=== PATIENT | female | born 1965 | race Caucasian/White ===

== ENCOUNTER 2021-09-06 23:09 | Inpatient (IN) | payer BC, OTHER, SELFPAY ==
--- NOTE | ~2021-09-06 | XR_ITS ---
EXAMINATION: XR abdomen obstructive series DATE: 09/13/2021 07:47 INDICATION: Nausea and bloating post appendectomy TECHNIQUE: Frontal supine and upright views of the abdomen were obtained. COMPARISON: CT dated 09/09/2021 FINDINGS: Surgical drain in the right lower quadrant. Multiple gas-filled but not frankly dilated loops of smal l bowel in the abdomen most likely postoperative ileus. No free intraperitoneal gas. Lung bases are c lear. Heart size is normal. IMPRESSION: 1. Several gas-filled but not frankly dilated loops of small bowel in the abdomen and favor postoper ative ileus over obstruction. Reviewed, dictated and finalized at location A. IMPRESSION: 1. Several gas-filled but not frankly dilated loops of small bowel in the abdo men and favor postoperative ileus over obstruction.
--- NOTE | ~2021-09-06 | CT_ITS ---
EXAMINATION: CT abdomen pelvis w con DATE: 09/09/2021 09:29 INDICATION: Appendicitis TECHNIQUE: Computed tomography (CT) of the abdomen and pelvis was performed with 100 mL Omnipaque-300 intravenous contrast. Automated exposure control and iterative reconstruction technique were employe d. The dose-length product was 1509.90 mGy-cm. COMPARISON: None FINDINGS: Lung bases are clear. Heart size is normal. No pericardial or pleural effusion. Liver, gallbladder, s pleen, pancreas, bilateral adrenal glands and kidneys are normal. The appendix is dilated to 12 mm di stal to a chronic obstructing 5 mm stone in the proximal appendix. There appears be a ruptured in the wall of the retrocecal appendix with approximately 3-4 cm diameter gas and fluid collection situated in the retroperitoneum between the appendix and the tip the cecum which is without organized enhanci ng wall. There is prominent surrounding retroperitoneal inflammatory stranding which extends cephalad into the inferior aspect of the right posterior pararenal space. There is also subtle stranding in t he immediately overlying deep subcutaneous fat of the right lower quadrant anterior abdominal wall. T here is no free intraperitoneal gas or fluid. Bladder, uterus and bilateral adnexa are unremarkable. No pathologically enlarged abdominal or pelvic lymphadenopathy. Bones are unremarkable. IMPRESSION: 1. Ruptured appendicitis with 3-4 cm nonorganized appearing gas and fluid collection between the appe ndix and the tip the cecum, likely retroperitoneal. Reviewed, dictated and finalized at location B. IMPRESSION: 1. Ruptured appendicitis with 3-4 cm nonorganized appearing gas and fluid colle ction between the appendix and the tip the cecum, likely retroperitoneal.
--- NOTE | ~2021-09-06 | CT_ITS ---
EXAMINATION: CT abdomen pelvis w con DATE: 09/13/2021 10:22 INDICATION: Nausea. Diffuse abdominal tenderness. TECHNIQUE: Computed tomography (CT) of the abdomen and pelvis was performed with 100 mL Omnipaque 300 intravenous contrast. Automated exposure control and iterative reconstruction technique were employe d. The dose-length product was 1412.89 mGy-cm. COMPARISON: CT abdomen and pelvis 09/09/2021 FINDINGS: The visualized portions of the lung bases are clear without pneumonia or pleural effusion. The heart size is normal. No pericardial effusion. The liver, gallbladder, spleen, pancreas, adrenal glands, and kidneys are normal. There are mildly dilated loops of small bowel. There is wall thickeni ng of the cecum and terminal ileum with surrounding fat stranding, consistent with inflammation. Ther e are changes of appendectomy with surgical drain in expected position. There are no pathologically e nlarged lymph nodes. There is no free intraperitoneal fluid. There is moderate lumbar spondylosis. IMPRESSION: 1. Surgical changes of appendectomy with inflammation of the terminal ileum and cecum. Surgical drain in expected position. No abscess. 2. Dilated small bowel, likely adynamic ileus. Reviewed, dictated and finalized at location A.
[2021-09-06 23:20] VITALS: BP 113/53; PULSE 102; RESP 20; TEMP 36.8; O2SAT 93
--- NOTE | 2021-09-06 23:30 | ADMGEN ---
This patient, Mena Holbrook, was admitted to Medical Room 345-01. Patient/family oriented to hospital policies and general routines including ID bracelet, bed and alarms, visiting hours, pain management, procedures, bathroom and other care routines, personal items, smoking policy, room service/diet, and visiting hours. Information on how to activate the Rapid Response Team has been discussed. Patient/Family are encouraged to report perceived risks to care and to ask questions if they do not understand what they are told or what they should do.
[2021-09-06 23:35] VITALS: BMI 43.1
--- NOTE | 2021-09-06 23:37 | P.HP_ITS ---
H&P: HPI History of Present Illness Date/Time: 09/06/21 23:37 Chief Complaint: Abdominal pain Narrative: 56-year-old female presenting from outside facility with past medical history significant for depression and anxiety on Zoloft, never hospitalized, no history of surgeries, here with abdominal pain, found to have acute appendicitis. However, she also tested positive for COVID, but is completely asymptomatic on room air, therefore she was transferred to our facility and accepted by surgery team, Dr. Goldstein. Plan is for her to have antibiotics and then have her appendix out as soon as possible. She is on room air and has been essentially asymptomatic from the COVID infection. She does admit to some fevers and chills at home. She denies chest pain or shortness of breath. She did have some nausea and abdominal pain but no emesis or diarrhea. Denies dysuria. Review of Systems Review of Systems: 12 point review of systems was assessed and was negative except as noted in the HPI [facility] Social History Social History Smoking status: Never smoker Alcohol intake: never Substance use: never Spiritual care concerns: No Meds Home Medications and Allergies Home Medications Medication Instructions Recorded Confirmed Type sertraline 25 mg tablet 1 tablet PO DAILY 09/07/21 09/07/21 History Allergies Allergy/AdvReac Type Severity Reaction Status Date / Time erythromycin base Allergy Unknown Unknown Verified 09/07/21 01:50 Exam Narrative: General: No acute distress, alert and oriented per baseline HEENT: Atraumatic, normocephalic, mucous membranes moist CV: Regular rate and rhythm, S1, S2 Lungs: Clear to auscultation bilaterally, no rales or crackles noted, no wheezes, good air entry Abdomen: Diffusely tender to palpation Extremities: Normal to inspection Skin: No rashes noted, no lesions or wounds seen Psych: Euthymic, normal affect Assessment and Plan Assessment and plan (1) Acute appendicitis: Code(s): K35.80 - Unspecified acute appendicitis Status: Acute Assessment and Plan: Zosyn, general surgery consultation, pain control with Dilaudid, NPO, IV fluids, suspect surgery soon Plan DVT prophylaxis with SCDs Full code
[2021-09-07] MEDS: SODIUM CHLORIDE 0.9% IV 1,000 ML 125 ML IV CONT ×3 (01:52→19:44)
[2021-09-07] MEDS: KETOROLAC 30 MG/ML VIAL (*BKC) 15 MG IV PUSH (02:31)
[2021-09-07] MEDS: HYDROmorphone HCL INJ (*CRX) 1 MG/ML SYR 0.5 MG IV PUSH ×3 (04:39→17:22)
[2021-09-07 05:03] VITALS: BP 131/61; PULSE 89; RESP 14; TEMP 36.9; O2SAT 96
[2021-09-07 05:41] LABS: Basophils Percent Auto 0.2 % (0.2-1.2); Hematocrit 38.8 % (37.0-47.0); Hemoglobin 12.4 g/dL (12.0-15.0); Immature Granulocyte Absolute 0.07 K/mm3 (0.00-0.031); Immature Granulocyte Percent A 0.5 % (0-0.5); Lymphocytes Absolute Auto 0.77 K/mm3 (0.9-3.2); Lymphocytes Percent Auto 5.9 % (18.3-44.2); Mean Corpuscular Hemoglobin 27.1 pg (26-34); Mean Corpuscular Volume 84.9 fl (80-100); Mean Platelet Volume 9.3 fl (7.4-10.4); Monocytes Absolute Auto 0.7 K/mm3 (0.1-0.6); Monocytes Percent Auto 5.2 % (2.6-8.5); Neutrophils Absolute Auto 11.5 K/mm3 (1.3-6.7); Neutrophils Percent Auto 88.2 % (45.5-73.1); Platelet Count Result 161 k/mm3 (150-375); Red Blood Count 4.57 M/mm3 (4.2-5.4); Red Cell Distribution Width 13.3 % (11.5-14.5)
[2021-09-07 05:48] LABS: Alanine Aminotransferase 32 U/L (6-35); Alkaline Phosphatase 70 U/L (38-126); Anion Gap 6 mmol/L (8-16); Aspartate Amino Transferase 27 U/L (14-36); Bilirubin,Total 1.3 mg/dL (0.2-1.3); Blood Urea Nitrogen 20 mg/dL (7-17); Calcium 8.6 mg/dL (8.4-10.2); Carbon Dioxide 28 mmol/L (22-30); Chloride 102 mmol/L (98-107); Estimated CRCL calculation 65 ml/min; Estimated Glomerular Filt Rate 57; Glucose 199 mg/dL (65-110); Potassium 3.9 mmol/L (3.4-5.0); Sodium 136 mmol/L (137-145)
[2021-09-07] MEDS: FAMOTIDINE 20 MG/2 ML VIAL IV PUSH ×2 (10:00→20:25)
[2021-09-07] MEDS: SERTRALINE HCL 25 MG TABLET PO (10:00)
[2021-09-07] MEDS: ENOXAPARIN 40 MG/0.4 ML SYRINGE SUB-Q (10:00)
[2021-09-07 14:12] VITALS: BP 103/86; PULSE 124; RESP 18; TEMP 38.1; O2SAT 96
--- NOTE | 2021-09-07 15:12 | WPDANESEPPF ---
Anes - Initial Pre Proc Eval Procedure: Operation Date: 09/08/21 07:30 Proposed Procedures p Laparoscopic Appendectomy - Robert Goldstein MD Date/Time: 09/07/21 15:12 Surgeon: Ninfa Green DO Pre Op Diagnosis: appendicitis, covid 19+ Patient Data Age: 56 Gender: F Height: 1.6 m Weight: 110.5 kg Last Vital Signs Temp 38.1 C H 09/07/21 14:12 Pulse 124 H 09/07/21 14:12 Resp 18 09/07/21 14:12 BP 103/86 09/07/21 14:12 Pulse Ox 96 09/07/21 14:12 O2 Del Method Room Air 09/07/21 01:13 Allergies Allergy/AdvReac Type Severity Reaction Status Date / Time erythromycin base Allergy Unknown Unknown Verified 09/07/21 01:50 Home Medications Medication Instructions Recorded Confirmed Type sertraline 25 mg tablet 1 tablet PO DAILY 09/07/21 09/07/21 History Laboratory Tests 09/07/21 09/07/21 05:28 05:28 WBC 13.0 K/mm3 H K/mm3 (4.5-10.0) RBC 4.57 M/mm3 M/mm3 (4.2-5.4) Hgb 12.4 g/dL g/dL (12.0-15.0) Hct 38.8 % % (37.0-47.0) MCV 84.9 fl fl (80-100) MCH 27.1 pg pg (26-34) MCHC 32.0 g/dl g/dl (32-36) RDW 13.3 % % (11.5-14.5) Plt Count 161 k/mm3 k/mm3 (150-375) MPV 9.3 fl fl (7.4-10.4) Immature Gran % (Auto) 0.5 % % (0-0.5) Neut % (Auto) 88.2 % H % (45.5-73.1) Lymph % (Auto) 5.9 % L % (18.3-44.2) Knott % (Auto) 5.2 % % (2.6-8.5) Eos % (Auto) 0.0 % % (0-4.4) Baso % (Auto) 0.2 % % (0.2-1.2) Lymph # (Auto) 0.77 K/mm3 L K/mm3 (0.9-3.2) Knott # (Auto) 0.7 K/mm3 H K/mm3 (0.1-0.6) Eos # (Auto) 0.0 K/mm3 K/mm3 (0-0.3) Baso # (Auto) 0.0 K/mm3 K/mm3 (0.0-0.1) Abs Immat Gran (auto) 0.07 K/mm3 H K/mm3 (0.00-0.031) Absolute Neuts (auto) 11.5 K/mm3 H K/mm3 (1.3-6.7) Absolute Nucleated RBC 0.0 K/mm3 K/mm3 (0.0-0.012) Nucleated RBC % 0.0 % % (0.0-0.2) Sodium 136 mmol/L L mmol/L (137-145) Potassium 3.9 mmol/L mmol/L (3.4-5.0) Chloride 102 mmol/L mmol/L (98-107) Carbon Dioxide 28 mmol/L mmol/L (22-30) Anion Gap 6 mmol/L L mmol/L (8-16) BUN 20 mg/dL H mg/dL (7-17) Creatinine 1.00 mg/dL mg/dL (0.7-1.0) Estim Creat Clear Calc 65 ml/min ml/min Estimated GFR 57 L (59 - ) Glucose 199 mg/dL H mg/dL (65-110) Calcium 8.6 mg/dL mg/dL (8.4-10.2) Total Bilirubin 1.3 mg/dL mg/dL (0.2-1.3) AST 27 U/L U/L (14-36) ALT 32 U/L U/L (6-35) Alkaline Phosphatase 70 U/L U/L (38-126) Total Protein 8.0 g/dL g/dL (6.3-8.2) Albumin 4.0 g/dL g/dL (3.5-5.1) Results Review: All pre-operative results and documents have been reviewed as part of the pre-operative evaluation. [facility] Past Medical History Medical History (Updated 09/07/21 @ 15:13 by James aZmorano MD) Acute appendicitis Anxiety Arthritis Depression Morbid obesity with BMI of 40.0-44.9, adult Social History Social History Smoking status: Never smoker Alcohol intake: never Substance use: never Spiritual care concerns: No Anes - Eval Final PreProcedure Day of Procedure 09/07/21 15:12 Patient weight: morbidly obese Heart: regular rate and rhythm Lungs: clear to auscultation and normal air movement Airway: Mallampati scale class II Neurological: alert and oriented Last oral intake: >/= 8 hours ASA classification: III Emergent: no Anesthetic plan: proceed Anesthesia type and monitoring: general ETT Results Review: All pre-operative results and documents have been reviewed as part of the pre-operative evaluation. Informed Consent: The patient's anesthetic plan and its attendant risks and benefits were discussed with the patient/family/POA. Questions were solicited and answers provided to the satisfaction of the patient/family/P
[2021-09-07 15:26] VITALS: O2SAT 96
--- NOTE | 2021-09-07 15:33 | PM.CNGS ---
Assessment and Plan Assessment and plan (1) Acute appendicitis: Code(s): K35.80 - Unspecified acute appendicitis Status: Acute Assessment and Plan: Discussed options with patient including medical treatment with antibiotics as well as surgical treatment. Since patient still does have COVID-19 and needs to be on isolation, have recommended antibiotic treatment for 24 hours to see if she improves. If does improve, can return for appendectomy in a delayed fashion after COVID-19 healed. Her symptom onset was 1 week ago yesterday. I discussed with her that if this should fail, we would go ahead with laparoscopic appendectomy. I discussed the procedure of laparoscopic appendectomy with her. The usual time in the hospital and recovery were discussed. We will continue Zosyn, analgesics and start clear liquid diet. Thank you for asking me to see this patient in consultation. (2) COVID-19: Code(s): U07.1 - COVID-19 Status: Acute Assessment and Plan: Onset of symptoms is 08/30/2021, 8 days ago. She has been asymptomatic by history last 2 days. Continue isolation and droplet precautions. (3) Morbid obesity with BMI of 40.0-44.9, adult: Code(s): E66.01 - Morbid (severe) obesity due to excess calories; Z68.41 - Body mass index [BMI] 40.0-44.9, adult Status: Chronic Assessment and Plan: Increases surgical risks (4) Depression: Code(s): F32.A - Depression, unspecified Status: Chronic Assessment and Plan: Continue her home med of sertraline. History of Present Illness Consult details Consult date: 09/07/21 (patient seen at 0800 09/07/21) Reason for consult: abdominal pain Requesting physician: Ninfa Green DO Narrative: Patient is a 56-year-old woman who started to have mid abdominal pain and nausea 2 nights ago, Monday night. She vomited once or twice in the next 24 hours. The pain stayed for the mild but then moved to the right lower quadrant and became more severe yesterday, Monday. She went to the emergency room in [place] and was noted to have an elevated white blood cell count. I do not have any of the physician reports or imaging reports from [place]. It was reported to me last evening that the patient had appendicitis and COVID 19. Anesthesiology at [place] did not feel they could take care of her due to her COVID status. She was then transferred to [facility] and I was made aware of her admission here at 4:00 a.m. this morning. Patient has continued to have abdominal pain. She has not had any vomiting or nausea since day before yesterday. She has been receiving hydromorphone and this helps the pain significantly. She did also receive Zosyn in [place] and has been on Zosyn since admitted. Regarding her COVID 19 status, patient began having symptoms of fatigue, sore throat, excessive phlegm or drainage in her throat on August 30. She took a COVID test on August 30 and this was negative. Her symptoms were persistent and she retested on September 02. This test was positive. Her symptoms described above were decreasing when her abdominal pain started. She has not really had these symptoms either yesterday or today. She does not have any shortness of breath and has not lost her sense of taste or smell. Her main complaints involve her abdomen as described above. Review of Systems Review of Systems: All systems reviewed & are unremarkable except as noted in HPI and below (HPI and those items noted below) Constitutional: Constitutional: Denies chills and Denies fever(s) Cardiovascular: Cardiovascular: Denies chest pain, Denies diaphoresis, Denies dyspnea and Denies paroxysmal nocturnal dyspnea Respiratory: Respiratory: Denies chest congestion, Denies cough and Denies dyspnea Gastrointestinal: Gastrointestinal: Reports as per HPI and Reports abdominal pain Integumentary/Breasts: Skin/Breast: Denies lesions and Denies rash PMFSH Past Medical History M
--- NOTE | 2021-09-07 15:56 | PM.IMPN ---
Progress Note: A&P Assessment and Plan (1) Acute appendicitis: Code(s): K35.80 - Unspecified acute appendicitis Status: Acute Assessment and Plan: Zosyn, general surgery consultation, pain control with Dilaudid, NPO, IV fluids, suspect surgery soon 09/07/2021 interval history: patient continued to complain of right lower abdominal pain but no fever or chills, patient was positive for COVID symptoms started 1 week ago, patient is seen by General surgery service since patient had a COVID would like to wait until isolation period ends meanwhile patient is treated with Zosyn, if her symptoms do not improve, patient may have surgery sooner, will continue to monitor patient on clear liquid and further recommendation to follow. Plan DVT prophylaxis with SCDs Full code Subjective Date/time seen: 09/07/21 15:56 HPI:56-year-old female presenting from outside facility with past medical history significant for depression and anxiety on Zoloft, never hospitalized, no history of surgeries, here with abdominal pain, found to have acute appendicitis.? However, she also tested positive for COVID, but is completely asymptomatic on room air, therefore she was transferred to our facility and accepted by surgery team, Dr. Goldstein.? Plan is for her to have antibiotics and then have her appendix out as soon as possible.? She is on room air and has been essentially asymptomatic from the COVID infection. She does admit to some fevers and chills at home.? She denies chest pain or shortness of breath.? She did have some nausea and abdominal pain but no emesis or diarrhea.? Denies dysuria. 09/07/2021 interval history: patient continued to complain of right lower abdominal pain but no fever or chills, patient was positive for COVID symptoms started 1 week ago, patient is seen by General surgery service since patient had a COVID would like to wait until isolation period ends meanwhile patient is treated with Zosyn, if her symptoms do not improve, patient may have surgery sooner, will continue to monitor patient on clear liquid and further recommendation to follow. Review of Systems Review of Systems: All systems reviewed & are unremarkable except as noted in HPI and below (HPI and those items noted below) Exam Narrative: morbidly obese Patient is comfortable, NAD HEENT: eyes are clear and none icteric LUNGS: normal respiratory effort ABD: obese distended Lower extremities: no edema SKIN: nonjaundiced Neuro: grossly intact. Objective Data Vital Signs Vital Signs: Vital Signs - 24 hr 09/06/21 23:20 09/07/21 01:13 09/07/21 05:03 Temperature 98.3 F 98.5 F Pulse Rate 102 H 89 Respiratory Rate 20 14 Blood Pressure 113/53 L 131/61 Pulse Oximetry 93 96 Oxygen Delivery Room Air 09/07/21 14:12 09/07/21 15:26 Temperature 100.5 F H Pulse Rate 124 H Respiratory Rate 18 Blood Pressure 103/86 Pulse Oximetry 96 96 Oxygen Delivery Room Air Intake/Output Intake/Output: Intake & Output 09/04/21 09/05/21 09/06/21 09/07/21 23:59 23:59 23:59 23:59 Intake Total 1440 Output Total 250 Balance 1190 Meds/Results Medications: Active Medications Generic Name Dose Route Start Last Admin Trade Name Freq PRN Reason Stop Dose Admin Acetaminophen 1,000 mg 09/07/21 08:52 Acetaminophen 500 Mg Tablet PO Q6H PRN Mild Pain (1-3) or Fever Enoxaparin Sodium 40 mg 09/07/21 09:00 09/07/21 10:00 Enoxaparin 40 Mg/0.4 Ml Syringe SUB-Q 40 mg DAILY JAZMINE Administration Famotidine 20 mg 09/07/21 09:00 09/07/21 10:00 Famotidine 20 Mg/2 Ml Vial IV PUSH 20 mg Q12HR JAZMINE Administration Fentanyl Citrate 25 mcg 09/07/21 15:11 Fentanyl Citrate Inj (*Crx) 100 Mcg/2 Ml Vial IV PUSH Q2M PRN Pain Hydromorphone HCl 1 mg 09/07/21 08:54 Hydromorphone Hcl Inj (*Crx) 1 Mg/Ml Syr IV PUSH Q2H PRN Pain Rated 7-10 Hydromorphone HCl 0.5 mg 09/07/21 08:51 Hydr
[2021-09-07] MEDS: IBUPROFEN IV 800 MG/200 ML 800 MG/200 ML BAG 400 MG IVPB (16:18)
[2021-09-07 19:29] VITALS: PULSE 124; RESP 18; O2SAT 96
[2021-09-07 20:11] VITALS: BP 111/53; PULSE 88; RESP 18; TEMP 36.8; O2SAT 96
[2021-09-07] MEDS: ONDANSETRON INJ 4 MG/2 ML VIAL IV PUSH (20:25)
[2021-09-08] MEDS: IBUPROFEN IV 800 MG/200 ML 800 MG/200 ML BAG 400 MG IVPB ×2 (01:16→05:08)
[2021-09-08] MEDS: ONDANSETRON INJ 4 MG/2 ML VIAL IV PUSH (01:19)
[2021-09-08 05:15] VITALS: BP 141/73; PULSE 85; RESP 18; TEMP 36.6; O2SAT 97
[2021-09-08 05:44] LABS: Basophils Percent Auto 0.2 % (0.2-1.2); Eosinophils Percent Auto 0.2 % (0-4.4); Hematocrit 33.2 % (37.0-47.0); Hemoglobin 10.9 g/dL (12.0-15.0); Immature Granulocyte Absolute 0.06 K/mm3 (0.00-0.031); Immature Granulocyte Percent A 0.6 % (0-0.5); Lymphocytes Absolute Auto 0.91 K/mm3 (0.9-3.2); Lymphocytes Percent Auto 8.9 % (18.3-44.2); Mean Corpuscular HGB Conc 32.8 g/dl (32-36); Mean Corpuscular Hemoglobin 27.3 pg (26-34); Mean Platelet Volume 9.4 fl (7.4-10.4); Monocytes Absolute Auto 0.6 K/mm3 (0.1-0.6); Monocytes Percent Auto 5.8 % (2.6-8.5); Neutrophils Absolute Auto 8.6 K/mm3 (1.3-6.7); Neutrophils Percent Auto 84.3 % (45.5-73.1); Platelet Count Result 157 k/mm3 (150-375); White Blood Count 10.2 K/mm3 (4.5-10.0)
[2021-09-08 05:57] LABS: Alanine Aminotransferase 44 U/L (6-35); Albumin Level 3.4 g/dL (3.5-5.1); Alkaline Phosphatase 92 U/L (38-126); Anion Gap 4 mmol/L (8-16); Aspartate Amino Transferase 32 U/L (14-36); Bilirubin,Total 1.1 mg/dL (0.2-1.3); Blood Urea Nitrogen 13 mg/dL (7-17); Calcium 7.9 mg/dL (8.4-10.2); Carbon Dioxide 29 mmol/L (22-30); Chloride 102 mmol/L (98-107); Estimated CRCL calculation 81 ml/min; Estimated Glomerular Filt Rate > 60; Glucose 175 mg/dL (65-110); Potassium 3.5 mmol/L (3.4-5.0); Sodium 135 mmol/L (137-145)
--- NOTE | 2021-09-08 07:00 | PM.PNGS ---
Progress Note: A&P Assessment and Plan (1) Acute appendicitis: Code(s): K35.80 - Unspecified acute appendicitis Status: Acute Assessment and Plan: pain is much improved. No fevers since 2:00 p.m. yesterday afternoon. White blood cell count down to 10,000. patient has not taken anything for pain that she can recall. Does get IV ibuprofen on a scheduled dose. Tenderness now only in the right lower quadrant with some residual guarding on exam-much better. Complains of diarrhea. Only wants liquids. Will start full liquids and hold off on surgery. Start oral metronidazole. Continue IV Zosyn antibiotics. (2) COVID-19: Code(s): U07.1 - COVID-19 Status: Acute Assessment and Plan: Continue droplet isolation. Subjective Subjective Date/Time Seen: 09/08/21 07:00 Patient reports: feels better, pain is less, tolerating liquids well, diarrhea and afebrile ( since 2:00 yesterday afternoon) Review of Systems Review of Systems: All systems reviewed & are unremarkable except as noted in HPI and below ( HPI and those items noted below) Constitutional: Constitutional: Denies anorexia, Denies body ache(s), Denies chills, Denies fever(s), Denies headache(s) and Denies poor appetite Gastrointestinal: Gastrointestinal: Reports abdominal pain ( reports this has gone, no pain meds through the night), Reports diarrhea, Denies nausea and Denies vomiting Exam Const: General: comfortable, no acute distress, awake and Physically active Nutritional Appearance: overweight Orientation/consciousness: patient oriented x3 GI: Inspection: non-distended and obesity GI Palp: Yes Soft to palpation, Yes Tenderness to palpation present (GI) ( less tender, blister packing machine tender guarding right lower quadrant) and Yes Guarding due to palpation present (GI) ( right lower quadrant only) Auscultation: Hypoactive bowel sounds present Objective Data Vital Signs Vital Signs: Vital Signs - 24 hr 09/07/21 14:12 09/07/21 15:26 09/07/21 19:29 Temperature 38.1 C H Pulse Rate 124 H 124 H Respiratory Rate 18 18 Blood Pressure 103/86 Pulse Oximetry 96 96 96 Oxygen Delivery Room Air Room Air 09/07/21 20:11 09/08/21 05:15 Temperature 36.8 C 36.6 C Pulse Rate 88 85 Respiratory Rate 18 18 Blood Pressure 111/53 L 141/73 H Pulse Oximetry 96 97 Oxygen Delivery Intake/Output Intake/Output: Intake & Output 09/05/21 09/06/21 09/07/21 09/08/21 23:59 23:59 23:59 23:59 Intake Total 3220 1450 Output Total 1050 250 Balance 2170 1200 Meds/Results Medications: Active Medications Generic Name Dose Route Start Last Admin Trade Name Freq PRN Reason Stop Dose Admin Enoxaparin Sodium 40 mg 09/07/21 09:00 09/07/21 10:00 Enoxaparin 40 Mg/0.4 Ml Syringe SUB-Q 40 mg DAILY JAZMINE Administration Piperacillin/Tazobactam/Dextrose 3.375 gm in 50 mls @ 100 mls/hr 09/07/21 02:00 09/08/21 01:53 Zosyn 3.375 Gm/D5w 50ml Pm IVPB Infused Q6H JAZMINE Infusion Lactated Ringer's 1,000 mls @ 30 mls/hr 09/07/21 15:15 Lr - Lactated Ringers Iv IV CONT .Q24H JAZMINE Lactated Ringer's 1,000 mls @ 30 mls/hr 09/07/21 15:15 Lr - Lactated Ringers Iv IV CONT .Q24H JAZMINE Ondansetron HCl 4 mg 09/07/21 15:11 09/08/21 01:19 Ondansetron Inj 4 Mg/2 Ml Vial IV PUSH 4 mg ONCE PRN Administration Nausea Ondansetron HCl 4 mg 09/08/21 01:01 Ondansetron Inj 4 Mg/2 Ml Vial IV PUSH Q6H PRN Nausea And Vomiting Sertraline HCl 25 mg 09/07/21 09:00 09/07/21 10:00 Sertraline Hcl 25 Mg Tablet PO 25 mg DAILY JAZMINE Administration Labs Labs: Laboratory Results - last 24 hr 09/08/21 09/08/21 05:28 05:28 WBC 10.2 H RBC 4.00 L Hgb 10.9 L Hct 33.2 L MCV 83.0 MCH 27.3 MCHC 32.8 RDW 13.0 Plt Count 157 MPV 9.4 Immature Gran % (Auto) 0.6 H Neut % (Auto) 84.3 H Lymph % (Auto) 8.9 L Meagher % (Auto) 5.8 Eos % (Auto) 0.2 Baso % (Auto) 0.2
[2021-09-08] MEDS: KCL 30 MEQ/0.9% SOD CHL 1,000 ML 80 ML IV CONT ×2 (08:05→20:21)
[2021-09-08] MEDS: ENOXAPARIN 40 MG/0.4 ML SYRINGE SUB-Q (08:06)
[2021-09-08] MEDS: SERTRALINE HCL 25 MG TABLET PO (08:07)
[2021-09-08] MEDS: FAMOTIDINE 20 MG TABLET PO ×2 (08:09→20:20)
[2021-09-08] MEDS: metroNIDAZOLE 250 MG TABLET 500 MG PO ×2 (12:16→18:00)
[2021-09-08 14:00] VITALS: BP 117/61; PULSE 92; RESP 14; TEMP 36.8; O2SAT 98
--- NOTE | 2021-09-08 14:07 | PM.IMPN ---
Progress Note: A&P Assessment and Plan (1) Acute appendicitis: Code(s): K35.80 - Unspecified acute appendicitis Status: Acute Assessment and Plan: Zosyn, general surgery consultation, pain control with Dilaudid, NPO, IV fluids, suspect surgery soon 09/07/2021 interval history: patient continued to complain of right lower abdominal pain but no fever or chills, patient was positive for COVID symptoms started 1 week ago, patient is seen by General surgery service since patient had a COVID would like to wait until isolation period ends meanwhile patient is treated with Zosyn, if her symptoms do not improve, patient may have surgery sooner, will continue to monitor patient on clear liquid and further recommendation to follow. On conservative management for acute appendicitis. Symptoms started a week ago. General surgery on board. On IV Zosyn. IV fluids. Will add simethicone for gas pain. If worsening pain will need repeat CT scan to further evaluate Plan DVT prophylaxis with SCDs Full code Subjective Date/time seen: 09/08/21 14:07 Interval history: HPI:56-year-old female presenting from outside facility with past medical history significant for depression and anxiety on Zoloft, never hospitalized, no history of surgeries, here with abdominal pain, found to have acute appendicitis.? However, she also tested positive for COVID, but is completely asymptomatic on room air, therefore she was transferred to our facility and accepted by surgery team, Dr. Goldstein.? Plan is for her to have antibiotics and then have her appendix out as soon as possible.? She is on room air and has been essentially asymptomatic from the COVID infection. She does admit to some fevers and chills at home.? She denies chest pain or shortness of breath.? She did have some nausea and abdominal pain but no emesis or diarrhea.? Denies dysuria. 09/08/2021 has some bloating sensation in her upper abdomen. Denies any abdominal pain feels is getting better. Denies any fever or chills. Review of Systems Review of Systems: All systems reviewed & are unremarkable except as noted in HPI and below (HPI and those items noted below) Exam Narrative: morbidly obese not in acute distress Patient is comfortable, NAD HEENT: eyes are clear and none icteric LUNGS: normal respiratory effort coarse breath sound bilaterally ABD: Soft, obese distended, mild tenderness in right lower quadrant Lower extremities: no edema cyanosis or clubbing SKIN: nonjaundiced Neuro: grossly intact. Alert and oriented x3 Objective Data Vital Signs Vital Signs: Vital Signs - 24 hr 09/07/21 14:12 09/07/21 15:26 09/07/21 19:29 Temperature 100.5 F H Pulse Rate 124 H 124 H Respiratory Rate 18 18 Blood Pressure 103/86 Pulse Oximetry 96 96 96 Oxygen Delivery Room Air Room Air 09/07/21 20:11 09/08/21 05:15 09/08/21 08:00 Temperature 98.3 F 97.9 F Pulse Rate 88 85 Respiratory Rate 18 18 Blood Pressure 111/53 L 141/73 H Pulse Oximetry 96 97 Oxygen Delivery Room Air Intake/Output Intake/Output: Intake & Output 09/05/21 09/06/21 09/07/21 09/08/21 23:59 23:59 23:59 23:59 Intake Total 3220 1930 Output Total 1050 250 Balance 2170 1680 Meds/Results Medications: Active Medications Generic Name Dose Route Start Last Admin Trade Name Freq PRN Reason Stop Dose Admin Hydrocodone Bitart/Acetaminophen 1 tab 09/08/21 06:54 Hydrocodone/Acetaminophen (*Crx) 5-325 Mg Tablet PO Q4H PRN Pain Rated 4-6 Enoxaparin Sodium 40 mg 09/07/21 09:00 09/08/21 08:06 Enoxaparin 40 Mg/0.4 Ml Syringe SUB-Q 40 mg DAILY JAZMINE Administration Famotidine 20 mg 09/08/21 09:00 09/08/21 08:09 Famotidine 20 Mg Tablet PO 20 mg Q12HR JAZMINE Administration Piperacillin/Tazobactam/Dextrose 3.375 gm in 50 mls @ 100 mls/hr 09/07/21 02:00 09/08/21 08:05 Zosyn 3.375 Gm/D5w 50ml Pm IVPB 100 mls/hr Q6H JAZMINE Administration Lactated Ring
[2021-09-08] MEDS: SIMETHICONE 125 MG CHEW TAB PO ×2 (15:53→20:23)
[2021-09-08] MEDS: HYDROcodone/acetaminophen (*CRX) 5-325 MG TABLET 1 TAB PO (18:03)
[2021-09-08 20:09] VITALS: BP 130/55; PULSE 88; RESP 18; TEMP 36.8; O2SAT 97
[2021-09-09] VITALS (10 sets, daily range): BP systolic 116–171; BP diastolic 53–97; PULSE 79–90; RESP 12–26; TEMP 36.9–37.4; O2SAT 91–98
[2021-09-09] MEDS: ONDANSETRON INJ 4 MG/2 ML VIAL IV PUSH ×3 (00:55→19:54)
[2021-09-09] MEDS: metroNIDAZOLE 250 MG TABLET 500 MG PO ×2 (00:55→05:12)
[2021-09-09] MEDS: HYDROcodone/acetaminophen (*CRX) 5-325 MG TABLET 1 TAB PO ×3 (00:57→09:50)
[2021-09-09 05:54] LABS: Basophils Percent Auto 0.4 % (0.2-1.2); Eosinophils Percent Auto 0.3 % (0-4.4); Hematocrit 33.5 % (37.0-47.0); Hemoglobin 10.8 g/dL (12.0-15.0); Immature Granulocyte Absolute 0.08 K/mm3 (0.00-0.031); Immature Granulocyte Percent A 0.7 % (0-0.5); Lymphocytes Absolute Auto 1.36 K/mm3 (0.9-3.2); Lymphocytes Percent Auto 12.1 % (18.3-44.2); Mean Corpuscular HGB Conc 32.2 g/dl (32-36); Mean Corpuscular Volume 83.8 fl (80-100); Mean Platelet Volume 9.5 fl (7.4-10.4); Monocytes Absolute Auto 0.7 K/mm3 (0.1-0.6); Monocytes Percent Auto 6.4 % (2.6-8.5); Neutrophils Percent Auto 80.1 % (45.5-73.1); Platelet Count Result 189 k/mm3 (150-375); Red Cell Distribution Width 13.2 % (11.5-14.5); White Blood Count 11.2 K/mm3 (4.5-10.0)
[2021-09-09 06:08] LABS: Alanine Aminotransferase 50 U/L (6-35); Albumin Level 3.7 g/dL (3.5-5.1); Alkaline Phosphatase 122 U/L (38-126); Anion Gap 4 mmol/L (8-16); Aspartate Amino Transferase 36 U/L (14-36); Blood Urea Nitrogen 10 mg/dL (7-17); Calcium 8.2 mg/dL (8.4-10.2); Carbon Dioxide 27 mmol/L (22-30); Chloride 101 mmol/L (98-107); Estimated CRCL calculation 81 ml/min; Estimated Glomerular Filt Rate > 60; Glucose 156 mg/dL (65-110); Potassium 3.6 mmol/L (3.4-5.0); Sodium 132 mmol/L (137-145)
--- NOTE | 2021-09-09 07:45 | PM.PNGS ---
Progress Note: A&P Assessment and Plan (1) Acute appendicitis: Code(s): K35.80 - Unspecified acute appendicitis Status: Acute Assessment and Plan: diarrhea has resolved but patient still having pain with tenderness and guarding in the right lower quadrant. Will make her NPO and repeat CT scan today. If not improving, may need to consider appendectomy. (2) COVID-19: Code(s): U07.1 - COVID-19 Status: Acute Assessment and Plan: Patient became symptomatic 10 days ago, on August 30. She tested positive on antigen testing on September 02. Has not been symptomatic for at least 3 days. Possibly her droplet isolation can be discontinued. (3) Depression: Code(s): F32.A - Depression, unspecified Status: Chronic Assessment and Plan: Sertraline being continued. (4) Morbid obesity with BMI of 40.0-44.9, adult: Code(s): E66.01 - Morbid (severe) obesity due to excess calories; Z68.41 - Body mass index [BMI] 40.0-44.9, adult Status: Chronic Assessment and Plan: Increases surgical risk. Subjective Subjective Date/Time Seen: 09/09/21 07:45 Patient reports: still having pain (Had pain, felt feverish about 11 p.m. yesterday. Better after), no bowel movement, diarrhea ( diarrhea is gone) and afebrile ( patient felt feverish but no fever recorded) Review of Systems Review of Systems: All systems reviewed & are unremarkable except as noted in HPI and below ( HPI and those items noted below) Constitutional: Constitutional: Denies anorexia, Denies chills, Reports fever(s) and Denies poor appetite Cardiovascular: Cardiovascular: Denies chest pain, Denies diaphoresis, Denies dyspnea and Denies paroxysmal nocturnal dyspnea Respiratory: Respiratory: Denies chest congestion, Denies cough and Denies dyspnea Integumentary/Breasts: Skin/Breast: Denies lesions and Denies rash Exam Const: General: cooperative, alert, Physically active and uncomfortable Nutritional Appearance: obese Orientation/consciousness: No confusion GI: Inspection: obesity ( protuberant) GI Palp: Yes Firmness to palpation present (GI), Yes Tenderness to palpation present (GI) ( only on right side but right lower quadrant tender labor with guarding), Yes Guarding due to palpation present (GI) ( right lower quadrant), No Hernia present, No Palpable mass present and No Rebound tenderness present Auscultation: Hypoactive bowel sounds present Neuro: General: patient oriented x3, no focal motor deficits and No confusion Extrem: General: no calf tenderness and no edema Psych: Affect: normal affect Insight: Good insight present (Psych) Judgement: Good judgement present (Psych) Objective Data Vital Signs Vital Signs: Vital Signs - 24 hr 09/08/21 08:00 09/08/21 14:00 09/08/21 20:09 Temperature 36.8 C 36.8 C Pulse Rate 92 88 Respiratory Rate 14 18 Blood Pressure 117/61 130/55 L Pulse Oximetry 98 97 Oxygen Delivery Room Air 09/09/21 05:27 Temperature 36.9 C Pulse Rate 85 Respiratory Rate 18 Blood Pressure 119/74 Pulse Oximetry 98 Oxygen Delivery Intake/Output Intake/Output: Intake & Output 09/06/21 09/07/21 09/08/21 09/09/21 23:59 23:59 23:59 23:59 Intake Total 3220 3820 50 Output Total 1050 950 600 Balance 2170 2870 -550 Meds/Results Medications: Active Medications Generic Name Dose Route Start Last Admin Trade Name Freq PRN Reason Stop Dose Admin Hydrocodone Bitart/Acetaminophen 1 tab 09/08/21 06:54 09/09/21 05:17 Hydrocodone/Acetaminophen (*Crx) 5-325 Mg Tablet PO 1 tab Q4H PRN Administration Pain Rated 4-6 Enoxaparin Sodium 40 mg 09/07/21 09:00 09/08/21 08:06 Enoxaparin 40 Mg/0.4 Ml Syringe SUB-Q 40 mg DAILY JAZMINE Administration Famotidine 20 mg 09/08/21 09:00 09/08/21 20:20 Famotidine 20 Mg Tablet PO 20 mg Q12HR JAZMINE Administration Piperacillin/Tazobactam/Dextrose 3.375 gm in 50 mls @ 100 mls/hr 09/07/21 02:00
[2021-09-09] MEDS: ENOXAPARIN 40 MG/0.4 ML SYRINGE SUB-Q (09:04)
[2021-09-09] MEDS: SERTRALINE HCL 25 MG TABLET PO (09:04)
[2021-09-09] MEDS: FAMOTIDINE 20 MG TABLET PO (09:04)
[2021-09-09] MEDS: SIMETHICONE 125 MG CHEW TAB PO ×2 (09:50→19:55)
--- NOTE | 2021-09-09 13:26 | WPDHPUPDATE1 ---
History and Physical Update Update Date/Time: 09/09/21 13:26 History and Physical has been reviewed, including an updated exam of the patient. There are NO changes in the patient's condition. Risks, benefits, and alternatives have been discussed and questions answered. Patient agrees to proceed with procedure.
[2021-09-09] MEDS: LACTATED RINGERS 1,000 ML 30 ML IV CONT ×2 (13:35→17:30)
--- NOTE | 2021-09-09 13:44 | WPDANESEPPF ---
Anes - Initial Pre Proc Eval Procedure: Operation Date: 09/09/21 15:00 Proposed Procedures p Laparoscopic Appendectomy; Possible Open - Robert Goldstein MD Date/Time: 09/09/21 13:44 Surgeon: Hussain Soto MD Pre Op Diagnosis: appendicitis, covid 19+ Patient Data Age: 56 Gender: F Height: 1.6 m Weight: 110.5 kg Last Vital Signs Temp 36.9 C 09/09/21 05:27 Pulse 85 09/09/21 05:27 Resp 18 09/09/21 05:27 BP 119/74 09/09/21 05:27 Pulse Ox 98 09/09/21 05:27 O2 Del Method Room Air 09/09/21 08:00 Allergies Allergy/AdvReac Type Severity Reaction Status Date / Time erythromycin base Allergy Unknown Unknown Verified 09/07/21 01:50 Home Medications Medication Instructions Recorded Confirmed Type sertraline 25 mg tablet 1 tablet PO DAILY 09/07/21 09/07/21 History Laboratory Tests 09/09/21 09/09/21 05:46 05:46 WBC 11.2 K/mm3 H K/mm3 (4.5-10.0) RBC 4.00 M/mm3 L M/mm3 (4.2-5.4) Hgb 10.8 g/dL L g/dL (12.0-15.0) Hct 33.5 % L % (37.0-47.0) MCV 83.8 fl fl (80-100) MCH 27.0 pg pg (26-34) MCHC 32.2 g/dl g/dl (32-36) RDW 13.2 % % (11.5-14.5) Plt Count 189 k/mm3 k/mm3 (150-375) MPV 9.5 fl fl (7.4-10.4) Immature Gran % (Auto) 0.7 % H % (0-0.5) Neut % (Auto) 80.1 % H % (45.5-73.1) Lymph % (Auto) 12.1 % L % (18.3-44.2) [place] % (Auto) 6.4 % % (2.6-8.5) Eos % (Auto) 0.3 % % (0-4.4) Baso % (Auto) 0.4 % % (0.2-1.2) Lymph # (Auto) 1.36 K/mm3 K/mm3 (0.9-3.2) [place] # (Auto) 0.7 K/mm3 H K/mm3 (0.1-0.6) Eos # (Auto) 0.0 K/mm3 K/mm3 (0-0.3) Baso # (Auto) 0.0 K/mm3 K/mm3 (0.0-0.1) Abs Immat Gran (auto) 0.08 K/mm3 H K/mm3 (0.00-0.031) Absolute Neuts (auto) 9.0 K/mm3 H K/mm3 (1.3-6.7) Absolute Nucleated RBC 0.0 K/mm3 K/mm3 (0.0-0.012) Nucleated RBC % 0.0 % % (0.0-0.2) Sodium 132 mmol/L L mmol/L (137-145) Potassium 3.6 mmol/L mmol/L (3.4-5.0) Chloride 101 mmol/L mmol/L (98-107) Carbon Dioxide 27 mmol/L mmol/L (22-30) Anion Gap 4 mmol/L L mmol/L (8-16) BUN 10 mg/dL mg/dL (7-17) Creatinine 0.80 mg/dL mg/dL (0.7-1.0) Estim Creat Clear Calc 81 ml/min ml/min Estimated GFR > 60 (59 - ) Glucose 156 mg/dL H mg/dL (65-110) Calcium 8.2 mg/dL L mg/dL (8.4-10.2) Total Bilirubin 1.0 mg/dL mg/dL (0.2-1.3) AST 36 U/L U/L (14-36) ALT 50 U/L H U/L (6-35) Alkaline Phosphatase 122 U/L U/L (38-126) Total Protein 7.0 g/dL g/dL (6.3-8.2) Albumin 3.7 g/dL g/dL (3.5-5.1) Patient hx anesthesia problems: none Family hx anesthesia problems: none Results Review: All pre-operative results and documents have been reviewed as part of the pre-operative evaluation. [facility] Past Medical History Medical History (Updated 09/07/21 @ 15:54 by Robert Goldstein MD) Acute appendicitis Anxiety Arthritis Depression Morbid obesity with BMI of 40.0-44.9, adult Social History Social History Smoking status: Never smoker Alcohol intake: never Substance use: never Spiritual care concerns: No Anes - Eval Final PreProcedure Day of Procedure 09/09/21 13:44 Patient weight: morbidly obese Heart: regular rate and rhythm Lungs: clear to auscultation Airway: Mallampati scale class 1 Neurological: alert and oriented Last oral intake: >/= 8 hours ASA classification: III Emergent: no Anesthetic plan: proceed Anesthesia type and monitoring: general ETT and standard monitoring Results Review: All pre-operative results and documents have been reviewed as part of the pre-operative evaluation. Informed Consent: The patient's anesthetic plan and its attendant risks and benefits were discussed with the patient/famil
--- NOTE | 2021-09-09 15:11 | PM.IMPN ---
Progress Note: A&P Assessment and Plan (1) Acute appendicitis: Code(s): K35.80 - Unspecified acute appendicitis Status: Acute Assessment and Plan: Zosyn, general surgery consultation, pain control with Dilaudid, NPO, IV fluids, suspect surgery soon 09/07/2021 interval history: patient continued to complain of right lower abdominal pain but no fever or chills, patient was positive for COVID symptoms started 1 week ago, patient is seen by General surgery service since patient had a COVID would like to wait until isolation period ends meanwhile patient is treated with Zosyn, if her symptoms do not improve, patient may have surgery sooner, will continue to monitor patient on clear liquid and further recommendation to follow. 09/09/2021 On conservative management for acute appendicitis. Symptoms started a week ago. General surgery on board. On IV Zosyn. IV fluids. Will add simethicone for gas pain. Worsening pain for which CT scan was repeated 09/09/2021 with findings of progression of appendicitis with rupture and inflammation. Plan for laparoscopic appendectomy today Plan DVT prophylaxis with SCDs Full code Subjective Date/time seen: 09/09/21 15:11 Interval history: HPI:56-year-old female presenting from outside facility with past medical history significant for depression and anxiety on Zoloft, never hospitalized, no history of surgeries, here with abdominal pain, found to have acute appendicitis.? However, she also tested positive for COVID, but is completely asymptomatic on room air, therefore she was transferred to our facility and accepted by surgery team, Dr. Goldstein.? Plan is for her to have antibiotics and then have her appendix out as soon as possible.? She is on room air and has been essentially asymptomatic from the COVID infection. She does admit to some fevers and chills at home.? She denies chest pain or shortness of breath.? She did have some nausea and abdominal pain but no emesis or diarrhea.? Denies dysuria. 09/08/2021 has some bloating sensation in her upper abdomen. Denies any abdominal pain feels is getting better. Denies any fever or chills. 09/09/2021 no overnight events. Feels better actually but had an episode earlier today. CT done this morning with worsening appendicitis with rupture and inflammation. Plan for surgery Review of Systems Review of Systems: All systems reviewed & are unremarkable except as noted in HPI and below (HPI and those items noted below) Exam Narrative: morbidly obese not in acute distress Patient is comfortable, NAD HEENT: eyes are clear and none icteric LUNGS: normal respiratory effort coarse breath sound bilaterally ABD: Soft, obese distended, mild tenderness in right lower quadrant Lower extremities: no edema cyanosis or clubbing SKIN: nonjaundiced Neuro: grossly intact. Alert and oriented x3 Objective Data Vital Signs Vital Signs: Vital Signs - 24 hr 09/08/21 20:09 09/09/21 05:27 09/09/21 08:00 Temperature 98.3 F 98.4 F Pulse Rate 88 85 Respiratory Rate 18 18 Blood Pressure 130/55 L 119/74 Pulse Oximetry 97 98 Oxygen Delivery Room Air Intake/Output Intake/Output: Intake & Output 09/06/21 09/07/21 09/08/21 09/09/21 23:59 23:59 23:59 23:59 Intake Total 3220 3820 100 Output Total 1050 950 600 Balance 2170 2870 -500 Meds/Results Medications: Active Medications Generic Name Dose Route Start Last Admin Trade Name Freq PRN Reason Stop Dose Admin Hydrocodone Bitart/Acetaminophen 1 tab 09/08/21 06:54 09/09/21 09:50 Hydrocodone/Acetaminophen (*Crx) 5-325 Mg Tablet PO 1 tab Q4H PRN Administration Pain Rated 4-6 Enoxaparin Sodium 40 mg 09/07/21 09:00 09/09/21 09:04 Enoxaparin 40 Mg/0.4 Ml Syringe SUB-Q 40 mg DAILY JAZMINE Administration Famotidine 20 mg 09/08/21 09:00 09/09/21 09:04 Famotidine 20 Mg Tablet PO 20 mg Q12HR JAZMINE Administration Fentanyl Citrate 25 mcg 09/09/21 13:45
[2021-09-09] MEDS: BUPIVACAINE/EPINEPHRINE 0.25% 50 ML VIAL 30 ML INFILTRATE (15:19)
--- NOTE | 2021-09-09 15:44 | PCCCNOTE ---
On 09/09/21, the student, Kenia Portillo, provided care and completed [facility] documentation on this patient. I have reviewed the student's documentation and agree with the findings.
--- NOTE | 2021-09-09 16:41 | W.PM.PROC2 ---
Procedure Note - Detailed Date of Procedure 09/09/21 Pre-op Diagnosis Ruptured appendicitis with abscess Post-op Diagnosis Same (Appendicitis with perforation and gangrene, abscess, localized peritonitis; Meckel's diverticulum) Procedure Performed Laparoscopic appendectomy, drainage intra-abdominal abscess Surgeon Robert Goldstein MD [employer] [place] [facility] Anesthesia General and Local (0.25% bupivacaine with epinephrine) Indications Patient is a 56-year-old woman with morbid obesity and COVID positive. She came here from an outside hospital with CT scan findings consistent with acute appendicitis. She was tried on IV antibiotics but continued to have evidence of right lower quadrant peritonitis. CT scan done today shows evidence of abscess and appendiceal perforation. She is taken to surgery now for laparoscopic appendectomy. Findings The appendix appeared to have been ruptured for several days. It was retrocecal and there was a large abscess associated. The peritoneal sidewalls were very thickened. The appendix itself was very fragmented in its proximal half. Patient has morbid obesity and the dissection was exceptionally difficult. The surgery took 3 times as long as usual. Tissues and tissue planes were extremely obscured due to the gangrenous tissue, the large abscess, the tattered appendix. There was also a Meckel's diverticulum in the distal ileum. Bleeding was at least twice if not 3 times the usual amount as well. An extra 4th trocar had to be placed and the patient had a drain placed in the abscess cavity. Description of Procedure Patient was taken to surgery and induced into general anesthesia. The abdomen is prepped and draped. The initial trocar was placed in the left subcostal position. This was an applied Medical optical trocar and was placed under direct visualization. With this trocar in position, we insufflated fully. A left mid abdominal 5 mm trocar was then placed. A 10 11 left lower abdominal trocar was placed as well. Patient was placed in Trendelenburg with the right-side elevated. The ascending colon was stuck to the right lower abdominal sidewall. This was taken down easily as it was an inflammatory adhesions. The cecum was buried further posterior. I continued to mobilize the proximal ascending colon off of the right abdominal sidewall and eventually an abscess cavity was entered. This had a foul odor and considerable amount of purulent fluid. The fluid was suctioned away as quickly as possible. We then continued to mobilize the proximal ascending colon and found the area of the cecum. There was a dense inflammatory mass of cecum and ileum attached to the posterior lateral sidewall. This was dissected away with blunt and some sharp dissection. Eventually the large abscess cavity with the appendix inside it was able to be visualized. Most of this area was mobilized off the retroperitoneum and the proximal ascending colon was mobilized as well. There was a diverticulum in the ileum, probably and Meckel's diverticulum that was also stuck in the inflammatory process. The ileum was mobilized from the abscess. There was still purulent fluid stuck to the inner lucero of the abscess which we suctioned away. I freed the cecum from the thickened peritoneum. It was still very difficult to identify the appendix. I placed another 5 mm trocar in the right upper quadrant under direct visualization. We moved the camera to this position which greatly helped with our dissection. The appendix was mobilized out of the abscess cavity. The proximal half of the appendix appeared to be fairly tattered. There was a lot of gangrenous change in the appendix. I found the distal cecum and trailed the tenia down to where the appendix origin should be located. I continued this dissection and eventually found the origin of the appendix. I mobilized this area of the cecum from the rest of the inflammatory process and eventually mobilized th
[2021-09-09] MEDS: diphenhydrAMINE HCl INJ 50 MG/ML VIAL 25 MG IV PUSH (17:10)
[2021-09-09] MEDS: SCOPOLAMINE 1.5 MG PATCH TRANSDERM (17:22)
[2021-09-09] MEDS: FAMOTIDINE 20 MG/2 ML VIAL IV PUSH (19:54)
[2021-09-09] MEDS: KCL 30 MEQ/0.9% SOD CHL 1,000 ML 100 ML IV CONT (19:55)
[2021-09-09] MEDS: MORPHINE SULFATE (*CRX) 4 MG/ML INJ IV PUSH (21:55)
[2021-09-10 00:09] VITALS: BP 147/68; PULSE 85; RESP 18; TEMP 36.9; O2SAT 94
[2021-09-10] MEDS: HYDROcodone/acetaminophen (*CRX) 5-325 MG TABLET 2 TAB PO ×5 (01:45→21:44)
[2021-09-10] MEDS: SIMETHICONE 125 MG CHEW TAB PO ×4 (02:06→23:46)
[2021-09-10 04:09] VITALS: BP 129/56; PULSE 77; RESP 18; TEMP 36.3; O2SAT 97
[2021-09-10 05:59] LABS: Basophils Percent Auto 0.2 % (0.2-1.2); Hematocrit 35.1 % (37.0-47.0); Hemoglobin 11.2 g/dL (12.0-15.0); Immature Granulocyte Absolute 0.09 K/mm3 (0.00-0.031); Immature Granulocyte Percent A 0.7 % (0-0.5); Lymphocytes Percent Auto 11.4 % (18.3-44.2); Mean Corpuscular HGB Conc 31.9 g/dl (32-36); Mean Corpuscular Hemoglobin 26.7 pg (26-34); Mean Corpuscular Volume 83.6 fl (80-100); Mean Platelet Volume 9.6 fl (7.4-10.4); Monocytes Absolute Auto 0.9 K/mm3 (0.1-0.6); Monocytes Percent Auto 7.1 % (2.6-8.5); Neutrophils Absolute Auto 10.6 K/mm3 (1.3-6.7); Neutrophils Percent Auto 80.6 % (45.5-73.1); Platelet Count Result 267 k/mm3 (150-375); Red Cell Distribution Width 13.7 % (11.5-14.5); White Blood Count 13.2 K/mm3 (4.5-10.0)
[2021-09-10 06:15] LABS: Alanine Aminotransferase 40 U/L (6-35); Albumin Level 3.7 g/dL (3.5-5.1); Alkaline Phosphatase 124 U/L (38-126); Anion Gap 6 mmol/L (8-16); Aspartate Amino Transferase 31 U/L (14-36); Bilirubin,Total 0.9 mg/dL (0.2-1.3); Blood Urea Nitrogen 11 mg/dL (7-17); Calcium 8.2 mg/dL (8.4-10.2); Carbon Dioxide 27 mmol/L (22-30); Chloride 101 mmol/L (98-107); Estimated CRCL calculation 81 ml/min; Estimated Glomerular Filt Rate > 60; Glucose 171 mg/dL (65-110); Potassium 3.6 mmol/L (3.4-5.0); Sodium 134 mmol/L (137-145)
--- NOTE | 2021-09-10 07:53 | PM.PNGS ---
Progress Note: A&P Assessment and Plan (1) Acute appendicitis with localized peritonitis, abscess, and gangrene: Code(s): K35.31 - Acute appendicitis with localized peritonitis and gangrene, without perforation; K35.33 - Acute appendicitis with perforation and localized peritonitis, with abscess Status: Acute Assessment and Plan: doing well postop day 1. Continue IV antibiotics. Advance to low-fiber diet. Ambulate. Continue WILL drain. Discussed operative findings with the patient including ruptured appendicitis with abscess. Discussed with her that she will be going home with her WILL drain in place. Doing well so far. (2) COVID-19: Code(s): U07.1 - COVID-19 Status: Acute Assessment and Plan: On set symptoms over 10 days ago. No longer on isolation. (3) Depression: Code(s): F32.A - Depression, unspecified Status: Chronic Assessment and Plan: On sertraline. (4) Morbid obesity with BMI of 40.0-44.9, adult: Code(s): E66.01 - Morbid (severe) obesity due to excess calories; Z68.41 - Body mass index [BMI] 40.0-44.9, adult Status: Chronic Subjective Subjective Date/Time Seen: 09/10/21 07:53 Post Op day: 1 ( laparoscopic appendectomy for ruptured appendicitis with abscess) Patient reports: still having pain (Pain at the trocar sites on the left side of the abdomen, lesser pain left lower quadrant), no bowel movement and afebrile Review of Systems Review of Systems: All systems reviewed & are unremarkable except as noted in HPI and below ( HPI) Exam Const: General: cooperative, alert and awake Nutritional Appearance: obese Orientation/consciousness: patient oriented x3 and No confusion GI: Inspection: non-distended, incision ( all trocar sites dry and healing well, serosanguineous WILL output.) and obesity GI Palp: Yes Firmness to palpation present (GI) and Yes Tenderness to palpation present (GI) ( Diffuse mild tenderness) Auscultation: Hypoactive bowel sounds present Objective Data Vital Signs Vital Signs: Vital Signs - 24 hr 09/09/21 08:00 09/09/21 16:42 09/09/21 16:55 Temperature 37.1 C Pulse Rate 80 79 Respiratory Rate 12 20 Blood Pressure 150/64 H 146/75 H Pulse Oximetry 91 97 Oxygen Delivery Room Air Simple Face Mask Simple Face Mask Oxygen Flow Rate 6 6 09/09/21 17:03 09/09/21 17:10 09/09/21 17:25 Temperature Pulse Rate 85 80 Respiratory Rate 26 H 26 H Blood Pressure 148/62 H 171/64 H Pulse Oximetry 97 96 96 Oxygen Delivery Room Air Nasal Cannula Nasal Cannula Oxygen Flow Rate 2 2 09/09/21 17:40 09/09/21 17:55 09/09/21 19:04 Temperature 36.9 C Pulse Rate 81 84 82 Respiratory Rate 26 H 24 H 18 Blood Pressure 119/97 H 116/76 129/53 L Pulse Oximetry 96 98 92 Oxygen Delivery Nasal Cannula Nasal Cannula Oxygen Flow Rate 2 2 09/09/21 20:09 09/10/21 00:09 09/10/21 04:09 Temperature 37.4 C 36.9 C 36.3 C L Pulse Rate 90 85 77 Respiratory Rate 18 18 18 Blood Pressure 158/68 H 147/68 H 129/56 L Pulse Oximetry 92 94 97 Oxygen Delivery Oxygen Flow Rate Intake/Output Intake/Output: Intake & Output 09/07/21 09/08/21 09/09/21 09/10/21 23:59 23:59 23:59 23:59 Intake Total 3220 3820 2600 50 Output Total 3846 875 5437 30 Balance 2170 2870 1300 20 Meds/Results Medications: Active Medications Generic Name Dose Route Start Last Admin Trade Name Freq PRN Reason Stop Dose Admin Acetaminophen 500 mg 09/09/21 18:24 Acetaminophen 500 Mg Tablet PO Q6H PRN Mild Pain (1-3) or Fever Hydrocodone Bitart/Acetaminophen 1 tab 09/09/21 18:24 Hydrocodone/Acetaminophen (*Crx) 5-325 Mg Tablet PO Q4H PRN Pain Rated 4-6 Hydrocodone Bitart/Acetaminophen 2 tab 09/09/21 18:24 09/10/21 05:47 Hydrocodone/Acetaminophen (*Crx) 5-325 Mg Tablet PO 2 tab Q4H PRN Administration Pain Rated 7-10 Enoxaparin Sodium 40 mg 09/07/21 09:00 09/09/21 09:04 Enoxaparin
[2021-09-10 08:09] VITALS: BP 136/61; PULSE 79; RESP 18; TEMP 36.8; O2SAT 96
[2021-09-10] MEDS: SERTRALINE HCL 25 MG TABLET PO (09:12)
[2021-09-10] MEDS: ENOXAPARIN 40 MG/0.4 ML SYRINGE SUB-Q (09:13)
[2021-09-10] MEDS: FAMOTIDINE 20 MG TABLET PO ×2 (09:16→21:34)
[2021-09-10 12:09] VITALS: BP 141/77; PULSE 75; RESP 20; TEMP 37.1; O2SAT 95
--- NOTE | 2021-09-10 14:31 | PM.IMPN ---
Progress Note: A&P Assessment and Plan (1) Acute appendicitis: Code(s): K35.80 - Unspecified acute appendicitis Status: Deleted Assessment and Plan: Zosyn, general surgery consultation, pain control with Dilaudid, NPO, IV fluids, suspect surgery soon 09/07/2021 interval history: patient continued to complain of right lower abdominal pain but no fever or chills, patient was positive for COVID symptoms started 1 week ago, patient is seen by General surgery service since patient had a COVID would like to wait until isolation period ends meanwhile patient is treated with Zosyn, if her symptoms do not improve, patient may have surgery sooner, will continue to monitor patient on clear liquid and further recommendation to follow. 09/09/2021 On conservative management for acute appendicitis. Symptoms started a week ago. General surgery on board. On IV Zosyn. IV fluids. Will add simethicone for gas pain. Worsening pain for which CT scan was repeated 09/09/2021 with findings of progression of appendicitis with rupture and inflammation. Status post laparoscopic appendectomy 09/09/[address] general surgery following continue Zosyn DVT prophylaxis Lovenox Code status full code Plan DVT prophylaxis with SCDs Full code Subjective Date/time seen: 09/10/21 14:31 Interval history: HPI:56-year-old female presenting from outside facility with past medical history significant for depression and anxiety on Zoloft, never hospitalized, no history of surgeries, here with abdominal pain, found to have acute appendicitis.? However, she also tested positive for COVID, but is completely asymptomatic on room air, therefore she was transferred to our facility and accepted by surgery team, Dr. Goldstein.? Plan is for her to have antibiotics and then have her appendix out as soon as possible.? She is on room air and has been essentially asymptomatic from the COVID infection. She does admit to some fevers and chills at home.? She denies chest pain or shortness of breath.? She did have some nausea and abdominal pain but no emesis or diarrhea.? Denies dysuria. 09/08/2021 has some bloating sensation in her upper abdomen. Denies any abdominal pain feels is getting better. Denies any fever or chills. 09/09/2021 no overnight events. Feels better actually but had an episode earlier today. CT done this morning with worsening appendicitis with rupture and inflammation. Plan for surgery 09/10/2021 underwent surgery yesterday. Reports he is sore. Feels a little bloated no nausea no fever chills drain in place Review of Systems Review of Systems: All systems reviewed & are unremarkable except as noted in HPI and below (HPI and those items noted below) Exam Narrative: morbidly obese not in acute distress Patient is comfortable, NAD HEENT: eyes are clear and none icteric LUNGS: normal respiratory effort coarse breath sound bilaterally ABD: Soft, obese distended, drain in place. Lower extremities: no edema cyanosis or clubbing SKIN: nonjaundiced Neuro: grossly intact. Alert and oriented x3 Objective Data Vital Signs Vital Signs: Vital Signs - 24 hr 09/09/21 16:42 09/09/21 16:55 09/09/21 17:03 Temperature 98.7 F Pulse Rate 80 79 Respiratory Rate 12 20 Blood Pressure 150/64 H 146/75 H Pulse Oximetry 91 97 97 Oxygen Delivery Simple Face Mask Simple Face Mask Room Air Oxygen Flow Rate 6 6 09/09/21 17:10 09/09/21 17:25 09/09/21 17:40 Temperature Pulse Rate 85 80 81 Respiratory Rate 26 H 26 H 26 H Blood Pressure 148/62 H 171/64 H 119/97 H Pulse Oximetry 96 96 96 Oxygen Delivery Nasal Cannula Nasal Cannula Nasal Cannula Oxygen Flow Rate 2 2 2 09/09/21 17:55 09/09/21 19:04 09/09/21 20:09 Temperature 98.4 F 99.4 F Pulse Rate 84 82 90 Respiratory Rate 24 H 18 18 Blood Pressure 116/76 129/53 L 158/68 H Pulse Oximetry 98 92 92 Oxygen Delivery Nasal Cannula Oxygen Flow Rate 2 09/10/21 00:09 09/10/21 04:
[2021-09-10] MEDS: KCL 30 MEQ/0.9% SOD CHL 1,000 ML 80 ML IV CONT (14:48)
[2021-09-10 20:15] VITALS: BP 128/58; PULSE 79; RESP 16; TEMP 36.4; O2SAT 95
[2021-09-10] MEDS: MORPHINE SULFATE (*CRX) 2 MG/ML INJ IV PUSH (23:39)
[2021-09-10] MEDS: ONDANSETRON INJ 4 MG/2 ML VIAL IV PUSH (23:46)
[2021-09-11] MEDS: HYDROcodone/acetaminophen (*CRX) 5-325 MG TABLET 2 TAB PO ×3 (02:10→14:13)
[2021-09-11] MEDS: KCL 30 MEQ/0.9% SOD CHL 1,000 ML 80 ML IV CONT ×2 (03:30→17:16)
[2021-09-11] MEDS: ONDANSETRON INJ 4 MG/2 ML VIAL IV PUSH ×5 (04:35→20:23)
[2021-09-11 05:01] VITALS: BP 140/88; PULSE 78; RESP 18; TEMP 36.3; O2SAT 95
[2021-09-11 07:52] VITALS: BP 141/70; PULSE 78; RESP 14; TEMP 36.7; O2SAT 93
[2021-09-11] MEDS: SERTRALINE HCL 25 MG TABLET PO (08:46)
[2021-09-11] MEDS: ENOXAPARIN 40 MG/0.4 ML SYRINGE SUB-Q (08:46)
[2021-09-11] MEDS: SIMETHICONE 125 MG CHEW TAB PO ×3 (08:47→20:23)
--- NOTE | 2021-09-11 12:28 | PM.IMPN ---
Progress Note: A&P Assessment and Plan (1) Acute appendicitis: Code(s): K35.80 - Unspecified acute appendicitis Status: Deleted Assessment and Plan: Zosyn, general surgery consultation, pain control with Dilaudid, NPO, IV fluids, suspect surgery soon 09/07/2021 interval history: patient continued to complain of right lower abdominal pain but no fever or chills, patient was positive for COVID symptoms started 1 week ago, patient is seen by General surgery service since patient had a COVID would like to wait until isolation period ends meanwhile patient is treated with Zosyn, if her symptoms do not improve, patient may have surgery sooner, will continue to monitor patient on clear liquid and further recommendation to follow. 09/09/2021 On conservative management for acute appendicitis. Symptoms started a week ago. General surgery on board. On IV Zosyn. IV fluids. Will add simethicone for gas pain. Worsening pain for which CT scan was repeated 09/09/2021 with findings of progression of appendicitis with rupture and inflammation. Status post laparoscopic appendectomy 09/09/[address] general surgery following continue Zosyn Continue current postoperative care. Drainage output monitor. No return of bowel function yet. Symptomatic and supportive treatment with pain medication nausea medication. Add PPI. Recheck labs in monitor counts DVT prophylaxis Lovenox Code status full code Subjective Date/time seen: 09/11/21 12:28 Interval history: HPI:56-year-old female presenting from outside facility with past medical history significant for depression and anxiety on Zoloft, never hospitalized, no history of surgeries, here with abdominal pain, found to have acute appendicitis.? However, she also tested positive for COVID, but is completely asymptomatic on room air, therefore she was transferred to our facility and accepted by surgery team, Dr. Goldstein.? Plan is for her to have antibiotics and then have her appendix out as soon as possible.? She is on room air and has been essentially asymptomatic from the COVID infection. She does admit to some fevers and chills at home.? She denies chest pain or shortness of breath.? She did have some nausea and abdominal pain but no emesis or diarrhea.? Denies dysuria. 09/08/2021 has some bloating sensation in her upper abdomen. Denies any abdominal pain feels is getting better. Denies any fever or chills. 09/09/2021 no overnight events. Feels better actually but had an episode earlier today. CT done this morning with worsening appendicitis with rupture and inflammation. Plan for surgery 09/10/2021 underwent surgery yesterday. Reports he is sore. Feels a little bloated no nausea no fever chills drain in place 09/11/2021 complains of abdominal soreness and bloating and nausea. Has not had any bowel movement. No flat us yet. Denies any fever chills. Still feels quite uncomfortable and sore drainage output is still significant Review of Systems Review of Systems: All systems reviewed & are unremarkable except as noted in HPI and below (HPI and those items noted below) Exam Narrative: morbidly obese not in acute distress Patient is comfortable, NAD HEENT: eyes are clear and none icteric LUNGS: normal respiratory effort coarse breath sound bilaterally ABD: Soft, obese distended, drain in place with serosanguineous drainage in the bulb Lower extremities: no edema cyanosis or clubbing SKIN: nonjaundiced Neuro: grossly intact. Alert and oriented x3 Objective Data Vital Signs Vital Signs: Vital Signs - 24 hr 09/10/21 20:15 09/11/21 05:01 09/11/21 07:52 Temperature 97.6 F 97.4 F L 98.1 F Pulse Rate 79 78 78 Respiratory Rate 16 18 14 Blood Pressure 128/58 L 140/88 141/70 H Pulse Oximetry 95 95 93 Oxygen Delivery 09/11/21 08:00 Temperature Pulse Rate Respiratory Rate Blood Pressure Pulse Oximetry Oxygen Delivery Room Air Intake/Output Intake/Outpu
[2021-09-11] MEDS: PANTOPRAZOLE 40 MG TABLET PO (13:44)
--- NOTE | 2021-09-11 15:30 | PM.PNGS ---
Progress Note: A&P Assessment and Plan (1) Acute appendicitis with localized peritonitis, abscess, and gangrene: Code(s): K35.31 - Acute appendicitis with localized peritonitis and gangrene, without perforation; K35.33 - Acute appendicitis with perforation and localized peritonitis, with abscess Status: Acute Assessment and Plan: doing OK postop day # 2. Continue IV antibiotics. Due to suspected ileus postop will cut back to full liquid diet. for right now because of the way she feels the patient has self regulated and cut back to clear liquids. I encouraged her to Ambulate. Continue WILL drain. the WILL is putting out a good amount but it is serosanguineous I suspect it is just edema and inflammatory fluid no mao pus. Discussed with her that she will be going home with her WILL drain in place. Doing well so far. Will continue to monitor drain output and encourage ambulation to help the ileus consider duplex suppository later this p.m. to try to get something going from the rectal side (2) COVID-19: Code(s): U07.1 - COVID-19 Status: Acute Assessment and Plan: On set symptoms over 10 days ago. No longer on isolation. (3) Depression: Code(s): F32.A - Depression, unspecified Status: Chronic Assessment and Plan: On sertraline. (4) Morbid obesity with BMI of 40.0-44.9, adult: Code(s): E66.01 - Morbid (severe) obesity due to excess calories; Z68.41 - Body mass index [BMI] 40.0-44.9, adult Status: Chronic Assessment and Plan: will encourage low-fat diet upon discharge Additional Plan because of her strange feelings on [place] she will try to get by if she is not having much pain with taking Tylenol so I increased it so she could have a 1000 mg once every 6 hours. Subjective Subjective Date/Time Seen: 09/11/21 15:30 Post Op day: 2 ( feel slightly nauseated, bloated) Patient reports: still having pain and tolerating liquids well Interval history: patient states she thinks the [place] is making her feel little bit funny in the head and also slightly nauseated. She feels bloated. She has not walked in the vaca but nurse states she has been up walking in her bathroom. She think she has passed a little bit of gas but no bowel movement yet since surgery. Review of Systems Review of Systems: All systems reviewed & are unremarkable except as noted in HPI and below (HPI and those items noted below) Gastrointestinal: Comments: Feels slightly nauseated. Self regulated and had only liquids for lunch. Exam Const: General: cooperative, comfortable, alert and awake Orientation/consciousness: patient oriented x3 HENMT: Head: normal to inspection Mouth: Yes moist mucous membranes Eyes: Sclera: sclerae normal Pupils: Equal, round and reactive pupils present Neck: Neck: normal visual inspection and no JVD Chest: Chest palpation & inspection: normal inspection of the chest Resp: Effort & Inspection: normal respiratory effort Auscultation: clear to auscultation bilaterally Cardio: Jugular venous distension: no JVD Rate: regular rate GI: Inspection: distended, incision ( Clean and dry with surgical glue in place) and no visible herniation GI Palp: Yes abdominal tenderness ( Mild near incisions.) Auscultation: Hypoactive bowel sounds present ( very few bowel sounds at this time.) Rectal Exam: deferred Neuro: General: patient oriented x3 Cranial nerves: Yes Equal, round and reactive pupils present Objective Data Vital Signs Vital Signs: Vital Signs - 24 hr 09/10/21 20:15 09/11/21 05:01 09/11/21 07:52 Temperature 36.4 C 36.3 C L 36.7 C Pulse Rate 79 78 78 Respiratory Rate 16 18 14 Blood Pressure 128/58 L 140/88 141/70 H Pulse Oximetry 95 95 93 Oxygen Delivery 09/11/21 08:00 Temperature Pulse Rate Respiratory Rate Blood Pressure Pulse Oximetry Oxygen Delivery Room Air Intake/Output Intake/Output: Intake & Out
[2021-09-11 16:36] VITALS: BP 135/76; PULSE 71; RESP 14; TEMP 36.6; O2SAT 97
[2021-09-11 19:56] VITALS: BP 142/81; PULSE 82; RESP 18; TEMP 36.6; O2SAT 95
[2021-09-11] MEDS: FAMOTIDINE 20 MG TABLET PO (20:23)
[2021-09-11] MEDS: BISACODYL 10 MG SUPPOSITORY RECTAL (20:30)
[2021-09-11 22:29] LABS: Basophils Absolute Auto 0.1 K/mm3 (0.0-0.1); Basophils Percent Auto 0.7 % (0.2-1.2); Eosinophils Absolute Auto 0.1 K/mm3 (0-0.3); Eosinophils Percent Auto 0.4 % (0-4.4); Hematocrit 37.3 % (37.0-47.0); Hemoglobin 11.6 g/dL (12.0-15.0); Immature Granulocyte Absolute 0.66 K/mm3 (0.00-0.031); Immature Granulocyte Percent A 5.2 % (0-0.5); Lymphocytes Absolute Auto 1.87 K/mm3 (0.9-3.2); Lymphocytes Percent Auto 14.9 % (18.3-44.2); Mean Corpuscular HGB Conc 31.1 g/dl (32-36); Mean Corpuscular Hemoglobin 26.5 pg (26-34); Mean Corpuscular Volume 85.2 fl (80-100); Mean Platelet Volume 9.3 fl (7.4-10.4); Monocytes Absolute Auto 0.8 K/mm3 (0.1-0.6); Monocytes Percent Auto 6.5 % (2.6-8.5); Neutrophils Absolute Auto 9.1 K/mm3 (1.3-6.7); Neutrophils Percent Auto 72.3 % (45.5-73.1); Platelet Count Result 329 k/mm3 (150-375); Red Blood Count 4.38 M/mm3 (4.2-5.4); Red Cell Distribution Width 14.2 % (11.5-14.5); White Blood Count 12.6 K/mm3 (4.5-10.0)
[2021-09-11 22:38] LABS: Alanine Aminotransferase 26 U/L (6-35); Albumin Level 3.3 g/dL (3.5-5.1); Alkaline Phosphatase 123 U/L (38-126); Anion Gap 4 mmol/L (8-16); Aspartate Amino Transferase 23 U/L (14-36); Bilirubin,Total 0.7 mg/dL (0.2-1.3); Blood Urea Nitrogen 12 mg/dL (7-17); Carbon Dioxide 29 mmol/L (22-30); Chloride 100 mmol/L (98-107); Estimated CRCL calculation 81 ml/min; Estimated Glomerular Filt Rate > 60; Glucose 165 mg/dL (65-110); Potassium 3.9 mmol/L (3.4-5.0); Sodium 133 mmol/L (137-145)
[2021-09-12] MEDS: ONDANSETRON INJ 4 MG/2 ML VIAL IV PUSH ×2 (00:33→07:01)
[2021-09-12] MEDS: IBUPROFEN IV 800 MG/200 ML 800 MG/200 ML BAG 400 MG IVPB ×2 (01:33→17:45)
[2021-09-12] MEDS: SIMETHICONE 125 MG CHEW TAB PO ×2 (02:37→20:35)
[2021-09-12 05:29] LABS: Basophils Absolute Auto 0.1 K/mm3 (0.0-0.1); Basophils Percent Auto 0.7 % (0.2-1.2); Eosinophils Absolute Auto 0.1 K/mm3 (0-0.3); Eosinophils Percent Auto 0.6 % (0-4.4); Hematocrit 33.6 % (37.0-47.0); Hemoglobin 10.7 g/dL (12.0-15.0); Immature Granulocyte Absolute 0.56 K/mm3 (0.00-0.031); Immature Granulocyte Percent A 5.2 % (0-0.5); Lymphocytes Absolute Auto 1.91 K/mm3 (0.9-3.2); Lymphocytes Percent Auto 17.7 % (18.3-44.2); Mean Corpuscular HGB Conc 31.8 g/dl (32-36); Mean Corpuscular Hemoglobin 26.5 pg (26-34); Mean Corpuscular Volume 83.2 fl (80-100); Mean Platelet Volume 9.2 fl (7.4-10.4); Monocytes Absolute Auto 0.8 K/mm3 (0.1-0.6); Monocytes Percent Auto 7.4 % (2.6-8.5); Neutrophils Absolute Auto 7.4 K/mm3 (1.3-6.7); Neutrophils Percent Auto 68.4 % (45.5-73.1); Platelet Count Result 279 k/mm3 (150-375); Red Blood Count 4.04 M/mm3 (4.2-5.4); Red Cell Distribution Width 14.1 % (11.5-14.5); White Blood Count 10.8 K/mm3 (4.5-10.0)
[2021-09-12 05:50] LABS: Alanine Aminotransferase 23 U/L (6-35); Albumin Level 2.8 g/dL (3.5-5.1); Alkaline Phosphatase 102 U/L (38-126); Anion Gap 3 mmol/L (8-16); Aspartate Amino Transferase 28 U/L (14-36); Bilirubin,Total 0.5 mg/dL (0.2-1.3); Blood Urea Nitrogen 12 mg/dL (7-17); Calcium 7.4 mg/dL (8.4-10.2); Carbon Dioxide 29 mmol/L (22-30); Chloride 102 mmol/L (98-107); Estimated CRCL calculation 91 ml/min; Estimated Glomerular Filt Rate > 60; Glucose 156 mg/dL (65-110); Potassium 3.6 mmol/L (3.4-5.0); Sodium 134 mmol/L (137-145)
[2021-09-12 06:50] VITALS: BP 146/74; PULSE 72; RESP 18; TEMP 36.6; O2SAT 96
[2021-09-12] MEDS: KCL 30 MEQ/0.9% SOD CHL 1,000 ML 80 ML IV CONT ×2 (09:10→20:35)
[2021-09-12] MEDS: ENOXAPARIN 40 MG/0.4 ML SYRINGE SUB-Q (09:12)
[2021-09-12] MEDS: SERTRALINE HCL 25 MG TABLET PO (09:12)
[2021-09-12] MEDS: PANTOPRAZOLE 40 MG TABLET PO (09:12)
[2021-09-12] MEDS: FAMOTIDINE 20 MG TABLET PO ×2 (10:07→20:35)
--- NOTE | 2021-09-12 11:35 | PM.PNGS ---
Progress Note: A&P Assessment and Plan (1) Acute appendicitis with localized peritonitis, abscess, and gangrene: Code(s): K35.31 - Acute appendicitis with localized peritonitis and gangrene, without perforation; K35.33 - Acute appendicitis with perforation and localized peritonitis, with abscess Status: Acute Assessment and Plan: Doing OK postop day # 3. Continue IV antibiotics. ( IV may be infiltrating will consider switching to oral antibiotics if it is). Patient may be close to being discharged. As tolerated full liquid diet for the last 2 meals. Ileus seems to be resolving. Will allow nurses to advance diet again. I encouraged her to Ambulate. Continue WILL drain. the WILL is putting out a good amount but it is serosanguineous I suspect it is just edema and inflammatory fluid no mao pus. Discussed with her that she will be going home with her WILL drain in place. Doing well so far. Will continue to monitor drain output and encourage ambulation to help the ileus consider Dulcolax suppository prn. to try to keep something going from the rectal side. (2) COVID-19: Code(s): U07.1 - COVID-19 Status: Acute Assessment and Plan: On set symptoms over 10 days ago. No longer on isolation. (3) Depression: Code(s): F32.A - Depression, unspecified Status: Chronic Assessment and Plan: On sertraline. (4) Morbid obesity with BMI of 40.0-44.9, adult: Code(s): E66.01 - Morbid (severe) obesity due to excess calories; Z68.41 - Body mass index [BMI] 40.0-44.9, adult Status: Chronic Assessment and Plan: will encourage low-fat diet upon discharge Additional Plan Because of her strange feelings on [place] she will try to get by if she is not having much pain with taking Tylenol so I increased it so she could have a 1000 mg once every 6 hours. Apparently did try IV ibuprofen that worked fairly well last evening. Thoroughly discussed her situation with Dr. Soto . If patient doing better this evening he may discharge her. She could gradually increase her diet at home also. She will follow up with Dr. Goldstein as directed in the discharge instructions. Answered her questions about care of the WILL drain and diet. Subjective Subjective Date/Time Seen: 09/12/21 11:35 Post Op day: 3 ( Ileus seems to be resolving, had bowel movement) Patient reports: feels better, still having pain ( mainly right side of abdomen.), flatus and bowel movement Interval history: Patient seen with Dr. Soto today. She is moving better. She did walk in the halls according to nursing. Bowel movement is also documented. Seems in better spirits today. Is tolerating full liquids now. Just not eating a lot. Review of Systems Review of Systems: All systems reviewed & are unremarkable except as noted in HPI and below (HPI and those items noted below) Exam Const: General: cooperative, comfortable, alert and awake Orientation/consciousness: patient oriented x3 HENMT: Head: normal to inspection Mouth: Yes moist mucous membranes Eyes: Sclera: sclerae normal Pupils: Equal, round and reactive pupils present Neck: Neck: normal visual inspection and no JVD Chest: Chest palpation & inspection: normal inspection of the chest GI: Inspection: incision ( Clean and dry with surgical glue in place) and no visible herniation GI Palp: Yes abdominal tenderness ( Mild near incisions.) Rectal Exam: deferred Other: Bowel sounds still hypoactive but better than yesterday. WILL drain still put out 360 cc serosanguineous fluid Last 24 hours. It is not frankly purulent. Neuro: General: patient oriented x3 Cranial nerves: Yes Equal, round and reactive pupils present Objective Data Vital Signs Vital Signs: Vital Signs - 24 hr 09/11/21 16:36 09/11/21 19:56 09/12/21 06:50 Temperature 36.6 C 36.6 C 36.6 C Pulse Rate 71 82 72 Respiratory Rate 14 18 18 Blood Pressure 135/76
[2021-09-12] MEDS: ACETAMINOPHEN 500 MG TABLET 1000 MG PO (13:10)
--- NOTE | 2021-09-12 13:54 | PM.IMPN ---
Progress Note: A&P Assessment and Plan (1) Acute appendicitis: Code(s): K35.80 - Unspecified acute appendicitis Status: Deleted Assessment and Plan: General surgery consultation, pain control with Dilaudid, NPO, IV fluids Recently placed on Conservative for acute appendicitis with IV antibiotics and NPO as Symptoms started a week ago. General surgery on board. On IV Zosyn. IV fluids. add simethicone for gas pain. Worsening pain for which CT scan was repeated 09/09/2021 with findings of progression of appendicitis with rupture and inflammation. Status post laparoscopic appendectomy 09/09/[address] general surgery following continue Zosyn Continue current postoperative care. Drainage output monitor. No return of bowel function yet. Symptomatic and supportive treatment with pain medication nausea medication. Add PPI. Labs reviewed DVT prophylaxis Lovenox Code status full code Subjective Date/time seen: 09/12/21 13:54 Interval history: HPI:56-year-old female presenting from outside facility with past medical history significant for depression and anxiety on Zoloft, never hospitalized, no history of surgeries, here with abdominal pain, found to have acute appendicitis.? However, she also tested positive for COVID, but is completely asymptomatic on room air, therefore she was transferred to our facility and accepted by surgery team, Dr. Goldstein.? Plan is for her to have antibiotics and then have her appendix out as soon as possible.? She is on room air and has been essentially asymptomatic from the COVID infection. She does admit to some fevers and chills at home.? She denies chest pain or shortness of breath.? She did have some nausea and abdominal pain but no emesis or diarrhea.? Denies dysuria. 09/08/2021 has some bloating sensation in her upper abdomen. Denies any abdominal pain feels is getting better. Denies any fever or chills. 09/09/2021 no overnight events. Feels better actually but had an episode earlier today. CT done this morning with worsening appendicitis with rupture and inflammation. Plan for surgery 09/10/2021 underwent surgery yesterday. Reports he is sore. Feels a little bloated no nausea no fever chills drain in place 09/11/2021 complains of abdominal soreness and bloating and nausea. Has not had any bowel movement. No flat us yet. Denies any fever chills. Still feels quite uncomfortable and sore drainage output is still significant 09/13/2019 no overnight events patient with ongoing bloating. Tolerating liquid diet. Drainage output is still present Review of Systems Review of Systems: All systems reviewed & are unremarkable except as noted in HPI and below (HPI and those items noted below) Exam Narrative: morbidly obese not in acute distress Patient is comfortable, NAD HEENT: eyes are clear and none icteric LUNGS: normal respiratory effort coarse breath sound bilaterally ABD: Soft, obese distended, drain in place with serosanguineous drainage in the bulb Lower extremities: no edema cyanosis or clubbing SKIN: nonjaundiced Neuro: grossly intact. Alert and oriented x3 Objective Data Vital Signs Vital Signs: Vital Signs - 24 hr 09/11/21 16:36 09/11/21 19:56 09/12/21 06:50 Temperature 98 F 98 F 98 F Pulse Rate 71 82 72 Respiratory Rate 14 18 18 Blood Pressure 135/76 142/81 H 146/74 H Pulse Oximetry 97 95 96 Oxygen Delivery 09/12/21 08:00 Temperature Pulse Rate Respiratory Rate Blood Pressure Pulse Oximetry Oxygen Delivery Room Air Intake/Output Intake/Output: Intake & Output 09/09/21 09/10/21 09/11/21 09/12/21 23:59 23:59 23:59 23:59 Intake Total 2600 2040 3450 1350 Output Total 1300 665 630 650 Balance 1300 1375 2820 700 Meds/Results Medications: Active Medications Generic Name Dose Route Start Last Admin Trade Name Freq PRN Reason Stop Dose Admin Acetaminophen 1,000 mg 09/11/21 15:29 09/12/21 13:10 Acetaminophen 500
[2021-09-12 14:00] VITALS: BP 125/91; PULSE 72; RESP 16; TEMP 35.8; O2SAT 98
[2021-09-12 22:00] VITALS: BP 130/76; PULSE 98; RESP 16; TEMP 36.3; O2SAT 98
[2021-09-13] MEDS: ACETAMINOPHEN 500 MG TABLET 1000 MG PO ×2 (00:21→09:45)
[2021-09-13] MEDS: ONDANSETRON INJ 4 MG/2 ML VIAL IV PUSH (01:47)
[2021-09-13 06:00] VITALS: BP 138/70; PULSE 74; RESP 20; TEMP 37; O2SAT 96
--- NOTE | 2021-09-13 07:20 | PM.PNGS ---
Progress Note: A&P Assessment and Plan (1) Acute appendicitis with localized peritonitis, abscess, and gangrene: Code(s): K35.31 - Acute appendicitis with localized peritonitis and gangrene, without perforation; K35.33 - Acute appendicitis with perforation and localized peritonitis, with abscess Status: Acute Assessment and Plan: nausea with left shift on CBC 4 days status post laparoscopic appendectomy for ruptured appendicitis with abscess. Will get CT scan abdomen and pelvis with contrast today. Will make her NPO for now. Still has WILL drain in place draining large amount of serous fluid, likely ascites. No enteric content noted. Also claims of nocturia and trouble sleeping due to getting up to urinate frequently. Labs otherwise look pretty good. We will see what CT scan shows today. (2) COVID-19: Code(s): U07.1 - COVID-19 Status: Resolved (3) Morbid obesity with BMI of 40.0-44.9, adult: Code(s): E66.01 - Morbid (severe) obesity due to excess calories; Z68.41 - Body mass index [BMI] 40.0-44.9, adult Status: Chronic (4) Depression: Code(s): F32.A - Depression, unspecified Status: Chronic Assessment and Plan: Continues her sertraline Subjective Subjective Date/Time Seen: 09/13/21 07:20 Post Op day: 4 ( Status post laparoscopic appendectomy for ruptured appendicitis with abscess) Patient reports: pain is less, bowel movement, nausea, afebrile and other (Had a terrible night. Had to get up to urinate every couple of hours.) Review of Systems Review of Systems: All systems reviewed & are unremarkable except as noted in HPI and below ( HPI and those items noted below) Constitutional: Constitutional: Denies chills, Reports difficulty sleeping, Denies headache(s) and Denies night sweats Cardiovascular: Cardiovascular: Denies chest pain and Denies dyspnea Respiratory: Respiratory: Denies cough and Denies dyspnea Gastrointestinal: Gastrointestinal: Reports as per HPI, Reports nausea and Denies vomiting Genitourinary: Genitourinary: Reports nocturia ( with nocturia) Exam Const: General: cooperative, comfortable, no acute distress and awake Nutritional Appearance: obese Orientation/consciousness: No confusion GI: Inspection: incision ( incisions healing well, WILL output is serous) and obesity ( protuberant abdomen, hard to tell if distended) GI Palp: Yes Firmness to palpation present (GI) and Yes Tenderness to palpation present (GI) ( mild diffuse tenderness) Objective Data Vital Signs Vital Signs: Vital Signs - 24 hr 09/12/21 08:00 09/12/21 14:00 09/12/21 20:00 Temperature 35.8 C L Pulse Rate 72 Respiratory Rate 16 Blood Pressure 125/91 H Pulse Oximetry 98 Oxygen Delivery Room Air Room Air 09/12/21 22:00 09/13/21 06:00 Temperature 36.3 C L 37.0 C Pulse Rate 98 74 Respiratory Rate 16 20 Blood Pressure 130/76 138/70 Pulse Oximetry 98 96 Oxygen Delivery Intake/Output Intake/Output: Intake & Output 09/10/21 09/11/21 09/12/21 09/13/21 23:59 23:59 23:59 23:59 Intake Total 2040 3450 2660 600 Output Total 665 630 700 50 Balance 1375 2820 1960 550 Meds/Results Medications: Active Medications Generic Name Dose Route Start Last Admin Trade Name Freq PRN Reason Stop Dose Admin Acetaminophen 1,000 mg 09/11/21 15:29 09/13/21 00:21 Acetaminophen 500 Mg Tablet PO 1,000 mg Q6H PRN Administration Mild Pain (1-3) or Fever Hydrocodone Bitart/Acetaminophen 1 tab 09/09/21 18:24 Hydrocodone/Acetaminophen (*Crx) 5-325 Mg Tablet PO Q4H PRN Pain Rated 4-6 Hydrocodone Bitart/Acetaminophen 2 tab 09/09/21 18:24 09/11/21 14:13 Hydrocodone/Acetaminophen (*Crx) 5-325 Mg Tablet PO 2 tab Q4H PRN Administration Pain Rated 7-10 Enoxaparin Sodium 40 mg 09/07/21 09:00 09/12/21 09:12 Enoxaparin 40 Mg/0.4 Ml Syringe SUB-Q 40 mg DAILY JAZMINE Administration Famotidine 20 mg 09/08/21
[2021-09-13 09:29] LABS: Basophils Absolute Auto 0.1 K/mm3 (0.0-0.1); Basophils Percent Auto 0.8 % (0.2-1.2); Eosinophils Absolute Auto 0.1 K/mm3 (0-0.3); Eosinophils Percent Auto 0.9 % (0-4.4); Hematocrit 32.8 % (37.0-47.0); Hemoglobin 10.5 g/dL (12.0-15.0); Immature Granulocyte Absolute 0.64 K/mm3 (0.00-0.031); Immature Granulocyte Percent A 6.4 % (0-0.5); Lymphocytes Absolute Auto 1.82 K/mm3 (0.9-3.2); Lymphocytes Percent Auto 18.2 % (18.3-44.2); Mean Corpuscular Hemoglobin 26.5 pg (26-34); Mean Corpuscular Volume 82.8 fl (80-100); Monocytes Absolute Auto 0.7 K/mm3 (0.1-0.6); Monocytes Percent Auto 6.7 % (2.6-8.5); Neutrophils Absolute Auto 6.7 K/mm3 (1.3-6.7); Platelet Count Result 350 k/mm3 (150-375); Red Blood Count 3.96 M/mm3 (4.2-5.4); Red Cell Distribution Width 14.2 % (11.5-14.5)
[2021-09-13 09:40] LABS: Alanine Aminotransferase 35 U/L (6-35); Albumin Level 2.7 g/dL (3.5-5.1); Alkaline Phosphatase 90 U/L (38-126); Anion Gap 3 mmol/L (8-16); Aspartate Amino Transferase 44 U/L (14-36); Bilirubin,Total 0.2 mg/dL (0.2-1.3); Blood Urea Nitrogen 6 mg/dL (7-17); Calcium 6.6 mg/dL (8.4-10.2); Carbon Dioxide 26 mmol/L (22-30); Chloride 108 mmol/L (98-107); Estimated CRCL calculation 124 ml/min; Estimated Glomerular Filt Rate > 60; Glucose 144 mg/dL (65-110); Potassium 3.2 mmol/L (3.4-5.0); Sodium 137 mmol/L (137-145)
[2021-09-13] MEDS: SERTRALINE HCL 25 MG TABLET PO (09:45)
[2021-09-13] MEDS: FAMOTIDINE 20 MG TABLET PO ×2 (09:45→20:04)
[2021-09-13] MEDS: PANTOPRAZOLE 40 MG TABLET PO (09:45)
[2021-09-13] MEDS: ENOXAPARIN 40 MG/0.4 ML SYRINGE SUB-Q (09:46)
[2021-09-13 11:46] LABS: Anisocytosis 1+ (NORMAL)
--- NOTE | 2021-09-13 11:46 | PC.NURSE ---
Called Dr. Goldstein's offices regarding patient not having a diet ordered
[2021-09-13 11:47] LABS: Platelet Estimate Adequate (Adequate)
[2021-09-13 14:00] VITALS: BP 152/72; PULSE 69; RESP 20; TEMP 36.8; O2SAT 99
--- NOTE | 2021-09-13 15:50 | PM.IMPN ---
Progress Note: A&P Assessment and Plan (1) Acute appendicitis: Code(s): K35.80 - Unspecified acute appendicitis Status: Deleted Assessment and Plan: General surgery consultation, pain control with Dilaudid, NPO, IV fluids Recently placed on Conservative for acute appendicitis with IV antibiotics and NPO as Symptoms started a week ago. General surgery on board. On IV Zosyn. IV fluids. add simethicone for gas pain. Worsening pain for which CT scan was repeated 09/09/2021 with findings of progression of appendicitis with rupture and inflammation. Status post laparoscopic appendectomy 09/09/[address] general surgery following continue Zosyn Continue current postoperative care. Drainage output monitor. No return of bowel function yet. Symptomatic and supportive treatment with pain medication nausea medication. Add PPI. Postoperative ileus repeat CT scan done 09/13/2021 ordered by General surgery. No abscess or any other abnormality detected. Continue supportive care as ordered. Advised to ambulate as was it can. Stay on full liquid if preferred and slowly will advance further she is having regular bowel movement and unlikely to have bowel obstruction. discussed with Dr. Goldstein Hypokalemia will replace done Labs reviewed DVT prophylaxis Lovenox Code status full code Subjective Date/time seen: 09/13/21 15:50 Interval history: HPI:56-year-old female presenting from outside facility with past medical history significant for depression and anxiety on Zoloft, never hospitalized, no history of surgeries, here with abdominal pain, found to have acute appendicitis.? However, she also tested positive for COVID, but is completely asymptomatic on room air, therefore she was transferred to our facility and accepted by surgery team, Dr. Goldstein.? Plan is for her to have antibiotics and then have her appendix out as soon as possible.? She is on room air and has been essentially asymptomatic from the COVID infection. She does admit to some fevers and chills at home.? She denies chest pain or shortness of breath.? She did have some nausea and abdominal pain but no emesis or diarrhea.? Denies dysuria. 09/08/2021 has some bloating sensation in her upper abdomen. Denies any abdominal pain feels is getting better. Denies any fever or chills. 09/09/2021 no overnight events. Feels better actually but had an episode earlier today. CT done this morning with worsening appendicitis with rupture and inflammation. Plan for surgery 09/10/2021 underwent surgery yesterday. Reports he is sore. Feels a little bloated no nausea no fever chills drain in place 09/11/2021 complains of abdominal soreness and bloating and nausea. Has not had any bowel movement. No flat us yet. Denies any fever chills. Still feels quite uncomfortable and sore drainage output is still significant 09/12/2021 no overnight events patient with ongoing bloating. Tolerating liquid diet. Drainage output is still present 09/13/2021 complaints of abdominal distention bloating sensation some nausea. She did eat some full liquid diet yesterday which he things tolerated well. No vomiting has been having bowel movement. Still feels uneasy with her shortness in her abdomen since the surgery. She also reports 1 of for incision site is draining serosanguineous fluid and has a Bandage placed in since yesterday. Review of Systems Review of Systems: All systems reviewed & are unremarkable except as noted in HPI and below (HPI and those items noted below) Exam Narrative: morbidly obese not in acute distress Patient is comfortable, NAD HEENT: eyes are clear and none icteric LUNGS: normal respiratory effort coarse breath sound bilaterally ABD: Soft, obese distended, drain in place with serosanguineous drainage in the bulb Left lower quadrant incision site with is open draining serosanguineous fluid. The overlying gauze is soaked and was changed during the visit Lower extrem
[2021-09-13 20:31] VITALS: BP 112/89; PULSE 71; RESP 16; TEMP 36.2; O2SAT 98
[2021-09-13] MEDS: IBUPROFEN IV 800 MG/200 ML 800 MG/200 ML BAG 400 MG IVPB (20:45)
[2021-09-14 05:21] VITALS: BP 140/61; PULSE 73; RESP 16; TEMP 36.1; O2SAT 97
[2021-09-14] MEDS: IBUPROFEN IV 800 MG/200 ML 800 MG/200 ML BAG 400 MG IVPB (05:36)
[2021-09-14] MEDS: polyethylene glycoL 3350 17 GM POWD.PACK PO (05:43)
[2021-09-14 06:00] LABS: Basophils Absolute Auto 0.1 K/mm3 (0.0-0.1); Basophils Percent Auto 0.7 % (0.2-1.2); Eosinophils Absolute Auto 0.1 K/mm3 (0-0.3); Eosinophils Percent Auto 1.2 % (0-4.4); Hematocrit 32.5 % (37.0-47.0); Hemoglobin 10.5 g/dL (12.0-15.0); Immature Granulocyte Absolute 0.54 K/mm3 (0.00-0.031); Lymphocytes Absolute Auto 1.92 K/mm3 (0.9-3.2); Lymphocytes Percent Auto 21.4 % (18.3-44.2); Mean Corpuscular HGB Conc 32.3 g/dl (32-36); Mean Corpuscular Hemoglobin 26.6 pg (26-34); Mean Corpuscular Volume 82.5 fl (80-100); Monocytes Absolute Auto 0.6 K/mm3 (0.1-0.6); Monocytes Percent Auto 7.1 % (2.6-8.5); Neutrophils Absolute Auto 5.7 K/mm3 (1.3-6.7); Neutrophils Percent Auto 63.6 % (45.5-73.1); Platelet Count Result 349 k/mm3 (150-375); Red Blood Count 3.94 M/mm3 (4.2-5.4); Red Cell Distribution Width 14.2 % (11.5-14.5)
[2021-09-14 06:16] LABS: Alanine Aminotransferase 118 U/L (6-35); Albumin Level 3.5 g/dL (3.5-5.1); Alkaline Phosphatase 116 U/L (38-126); Anion Gap 4 mmol/L (8-16); Aspartate Amino Transferase 134 U/L (14-36); Bilirubin,Total 0.6 mg/dL (0.2-1.3); Blood Urea Nitrogen 6 mg/dL (7-17); Calcium 8.1 mg/dL (8.4-10.2); Carbon Dioxide 32 mmol/L (22-30); Chloride 101 mmol/L (98-107); Estimated CRCL calculation 81 ml/min; Estimated Glomerular Filt Rate > 60; Glucose 140 mg/dL (65-110); Magnesium 2.4 mg/dL (1.6-2.3); Potassium 3.6 mmol/L (3.4-5.0); Sodium 137 mmol/L (137-145)
[2021-09-14] MEDS: ENOXAPARIN 40 MG/0.4 ML SYRINGE SUB-Q (08:05)
[2021-09-14] MEDS: PANTOPRAZOLE 40 MG TABLET PO (08:06)
[2021-09-14] MEDS: FAMOTIDINE 20 MG TABLET PO (08:06)
[2021-09-14] MEDS: SERTRALINE HCL 25 MG TABLET PO (08:06)
--- NOTE | 2021-09-14 09:20 | PM.PNGS ---
Progress Note: A&P Assessment and Plan (1) Acute appendicitis with localized peritonitis, abscess, and gangrene: Code(s): K35.31 - Acute appendicitis with localized peritonitis and gangrene, without perforation; K35.33 - Acute appendicitis with perforation and localized peritonitis, with abscess Status: Acute Assessment and Plan: doing well. Eating with minimal symptoms. Having bowel movements. Able to ambulate quite well. I instructed her on WILL drain management. She can go home from surgical perspective. She can see me in the office in 2 days, 09/16/2021, at 10:45 a.m. in the morning. We will likely remove her drain at that time. She is doing much better than yesterday. (2) COVID-19: Code(s): U07.1 - COVID-19 Status: Resolved Assessment and Plan: Present when she transferred here but no longer contagious or symptomatic. (3) Morbid obesity with BMI of 40.0-44.9, adult: Code(s): E66.01 - Morbid (severe) obesity due to excess calories; Z68.41 - Body mass index [BMI] 40.0-44.9, adult Status: Chronic (4) Depression: Code(s): F32.A - Depression, unspecified Status: Chronic Assessment and Plan: Has continued her sertraline. Subjective Subjective Date/Time Seen: 09/14/21 09:20 Post Op day: 5 Patient reports: feels better, tolerating a regular diet, bowel movement and afebrile Interval history: Upset she can not walk longer distances off the unit. Discussed with nursing that she may just leave AMA if she can not walk off the unit. Review of Systems Review of Systems: All systems reviewed & are unremarkable except as noted in HPI and below ( HPI and those items noted below) Constitutional: Constitutional: Denies chills, Denies fever(s) and Denies poor appetite Cardiovascular: Cardiovascular: Denies chest pain, Denies diaphoresis, Denies dyspnea and Denies paroxysmal nocturnal dyspnea Respiratory: Respiratory: Denies chest congestion, Denies cough and Denies dyspnea Gastrointestinal: Gastrointestinal: Denies bloating, Denies heartburn and Denies nausea Integumentary/Breasts: Skin/Breast: Denies lesions and Denies rash Exam Const: General: comfortable, alert and awake Nutritional Appearance: obese Orientation/consciousness: No confusion GI: Inspection: incision ( left lower quadrant incision dry and healing with some skin separation. ), obesity and other ( WILL output serous) GI Palp: Yes Soft to palpation and Yes Tenderness to palpation present (GI) ( mild tenderness) Auscultation: normal bowel sounds Objective Data Vital Signs Vital Signs: Vital Signs - 24 hr 09/13/21 14:00 09/13/21 20:31 09/14/21 05:21 Temperature 36.8 C 36.2 C L 36.1 C L Pulse Rate 69 71 73 Respiratory Rate 20 16 16 Blood Pressure 152/72 H 112/89 140/61 Pulse Oximetry 99 98 97 Intake/Output Intake/Output: Intake & Output 09/11/21 09/12/21 09/13/21 09/14/21 23:59 23:59 23:59 23:59 Intake Total 3450 2660 2310 920 Output Total 630 700 50 Balance 2820 1960 2260 920 Meds/Results Medications: Active Medications Generic Name Dose Route Start Last Admin Trade Name Freq PRN Reason Stop Dose Admin Acetaminophen 650 mg 09/13/21 12:34 Acetaminophen 325 Mg Tablet PO Q6H PRN Mild Pain (1-3) or Fever Hydrocodone Bitart/Acetaminophen 1 tab 09/09/21 18:24 Hydrocodone/Acetaminophen (*Crx) 5-325 Mg Tablet PO Q4H PRN Pain Rated 4-6 Hydrocodone Bitart/Acetaminophen 2 tab 09/09/21 18:24 09/11/21 14:13 Hydrocodone/Acetaminophen (*Crx) 5-325 Mg Tablet PO 2 tab Q4H PRN Administration Pain Rated 7-10 Enoxaparin Sodium 40 mg 09/07/21 09:00 09/14/21 08:05 Enoxaparin 40 Mg/0.4 Ml Syringe SUB-Q 40 mg DAILY JAZMINE Administration Famotidine 20 mg 09/08/21 09:00 09/14/21 08:06 Famotidine 20 Mg Tablet PO 20 mg Q12HR JAZMINE Administration Piperacillin/Tazobactam/Dextrose 3.375 gm in 50 mls @ 100 mls/hr 07
--- NOTE | 2021-09-14 10:18 | PM.DS ---
DS: Admitting Diagnosis Discharge Date 09/14/2021 Admitting Diagnosis acute appendicitis DS: Discharge Diagnosis Discharge Diagnosis (1) Acute appendicitis: Code(s): K35.80 - Unspecified acute appendicitis Status: Deleted Assessment and Plan: patient was admitted with acute appendicitis that started about a week ago. He was placed NPO on admission and started on IV antibiotics and IV fluids kept NPO. General surgery was consulted. Since it was 7 days since start conservative management with IV antibiotics alone was planned. She was also COVID positive at the time for them to take her for the surgery unless emergent. She continued to have worsening pain on conservative management and hence CT scan was repeated on 09/09/2021 which showed findings of progression appendicitis with rupture inflammation that has worsened since initial presentation. she was then taken for laparoscopic appendectomy which was performed on 09/09/[address]. She was continued on Zosyn throughout the hospital stay. In the postoperative. She had postoperative ileus with ongoing bloating and nausea. This was managed conservatively as well with slowly advancing the diet. She started to have bowel movement and able to tolerate more food. She was also advised to ambulate as was possible. She had hypokalemia which was corrected as well. She still had significant drain out of for WILL drain and hence she is getting discharged with drain in place. There also a left lower abdominal wall incision side which opened up during the hospital stay which managed with dressing changes regularly. The fluid is serosanguineous in consistency and will be followed up by Dr. Goldstein as an outpatient basis as well. She remained afebrile and her vitals remained stable throughout the hospital stay. She was given Lovenox for DVT prophylaxis during the hospital stay. Her WBC count was initially high which she continued to improve with above-stated treatment/ management and normalized by the time of discharge. DS: Summary Hospital Course Hospital Course: see above Time Spent with Patient Time attestation: Total time spent providing and/or coordinating discharge services: 50 minutes Exam Narrative: morbidly obese not in acute distress Patient is comfortable, NAD HEENT: eyes are clear and none icteric LUNGS: normal respiratory effort coarse breath sound bilaterally ABD: Soft, obese distended, mildly tender on right lower quadrant which is expected, drain in place with serosanguineous drainage in the bulb Left lower quadrant incision site with is open draining serosanguineous fluid. The overlying gauze is soaked and was changed during the visit Lower extremities: no edema cyanosis or clubbing SKIN: nonjaundiced Neuro: grossly intact. Alert and oriented x3 DS: Data Data Completed and Pending Completed studies during hospitalization: Pending at discharge 09/09/21 16:34 Surgical [PTH] Routine Labs on day of discharge: Labs from last 24 hours 09/14/21 09/14/21 09/13/21 05:36 05:36 09:21 WBC 9.0 10.0 RBC 3.94 L 3.96 L Hgb 10.5 L 10.5 L Hct 32.5 L 32.8 L MCV 82.5 82.8 MCH 26.6 26.5 MCHC 32.3 32.0 RDW 14.2 14.2 Plt Count 349 350 MPV 9.0 9.0 Immature Gran % (Auto) 6.0 H 6.4 H Neut % (Auto) 63.6 67.0 Lymph % (Auto) 21.4 18.2 L [place] % (Auto) 7.1 6.7 Eos % (Auto) 1.2 0.9 Baso % (Auto) 0.7 0.8 Lymph # (Auto) 1.92 1.82 [place] # (Auto) 0.6 0.7 H Eos # (Auto) 0.1 0.1 Baso # (Auto) 0.1 0.1 Abs Immat Gran (auto) 0.54 H 0.64 H Absolute Neuts (auto) 5.7 6.7 Absolute Nucleated RBC 0.0 0.0 Nucleated RBC % 0.0 0.0 Platelet Estimate Adequate Anisocytosis 1+ Sodium 137 Potassium 3.6 Chloride 101 Carbon Dioxide 32 H Anion Gap 4 L BUN 6 L Creatinine 0.80 Estim Creat Clear Calc 81 Estimated GFR > 60 Glucose 140 H Calcium 8.1 L
[2021-09-14] MEDS: ACETAMINOPHEN 325 MG TABLET 650 MG PO (11:49)
--- NOTE | 2021-09-14 14:59 | PC.NURSE ---
pt discharging home with WILL drain. pt educated on how to empty and care for WILL drain. supplies sent
== END 2021-09-14 15:00 | disposition home or self-care (01) | DRG 338 ==
PROVIDERS: Surgery; Admitting Provider Student in an Organized Health Care Education/Training Program; PCP Obstetrics & Gynecology; Visit Provider Internal Medicine
PROC: 0DTJ4ZZ Resection of Appendix, Percutaneous Endoscopic Approach (ICD-10-PCS; CPT 44970; principal; 2021-09-09 15:00)
DX: K35.33 Acute appendicitis with perforation, localized peritonitis, and gangrene, with abscess (principal); U07.1 COVID-19; K56.7 Ileus, unspecified; Z68.41 Body mass index [BMI] 40.0-44.9, adult; E66.01 Morbid (severe) obesity due to excess calories; E87.6 Hypokalemia; Q43.0 Meckel's diverticulum (displaced) (hypertrophic); F32.A Depression, unspecified; F41.9 Anxiety disorder, unspecified; Z79.899 Other long term (current) drug therapy
CPT/HCPCS: 36415; 74019; 74177; 80053; 83735; 85025; 88304; A9270; G0378; G0379; J0131; J0330; J1100; J1170; J1200; J1650; J1741; J1885; J2250; J2270; J2405; J2543; J2704; J3010; J3480; J7030; J7120; Q9967